=== PATIENT | female | born 1970 | race African-American/Black ===

== ENCOUNTER 2017-02-22 12:11 | Inpatient (IN) | payer OTHER, MEDICAID ==
[~2017-02-22] VITALS: Ht 172.7 cm; Wt 81.1 kg
[2017-02-22] VITALS (10 sets, daily range): BP systolic 86–180; BP diastolic 54–91; PULSE 51–125; RESP 18–23; O2SAT 91–100
[~2017-02-22 12:11] MED LIST: CLON0.1T PO; DOXE10CA PO; HYDR50TA76 PO; INSLIS SUBQ; INSU100I13 SUBQ; MULT-666 PO; MUPI15CR TOPICAL; NAPR500T PO; OMEG-122 PO
[2017-02-22 13:04] LABS: BASOPHILS % (AUTO) 0.1 % (0-3); EOSINOPHILS % (AUTO) 0.1 % (0-5); MONOCYTES % (AUTO) 8.1 % (4-12); Mean Corpuscular Hemoglobin 22.1 pg (27.0-35.0); Mean Corpuscular Volume 68.3 fL (81-100); NEUTROPHILS % (AUTO) 81.1 % (40-74); Platelet Count 151 bil/L (150-400)
[2017-02-22 13:27] LABS: Magnesium 1.3 mg/dL (1.6-2.6)
[2017-02-22 13:32] LABS: APPEARANCE,URINE HAZY (CLEAR,HAZY); COLOR,URINE YELLOW (YELLOW); OCCULT BLOOD,URINE SMALL (NEGATIVE); PH,URINE 6.5 (5.0-8.0)
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
[2017-02-22] MEDS ORDERED: Magnesium Sulf 2 Gm/50mL Water 2 GM in IV Premix 1 EACH IV ONE (13:45)
[2017-02-22] MEDS ORDERED: HYDROmorphone 0.5 mg/0.5 mL iSecure Syringe IVPUSH PRN (13:50)
[2017-02-22] MEDS ORDERED: Ondansetron 2 mg/mL 2 mL Inj IVPUSH ONE (13:50)
[2017-02-22] MEDS ORDERED: PEDS CEFTRIAXONE IV ONE (13:50)
[2017-02-22] MEDS ORDERED: DEXTROSE 5% IV ONE (13:50)
[2017-02-22] MEDS ORDERED: 0.9% Sodium Chloride 1,000 ML IV ONE ×4 (13:50→22:55)
[2017-02-22] MEDS ORDERED: cefTRIAXone 2,000 mg/D5W 50 mL IV Minibag Plus IV ONE ×2 (14:15)
--- NOTE | 2017-02-22 15:43 | DRSVH ---
PROCEDURE: CT KUB ([id number]) INDICATIONS: FLank pain, TECHNIQUE: Noncontrast 5 mm thick sections acquired from the diaphragms to the symphysis. 5 mm thick coronal an d sagittal reformats were then performed. For radiation dose reduction, the following was used: aut omated exposure control, adjustment of mA and/or kV according to patient size. COMPARISON: None. FINDINGS: Image quality: Excellent. Lung bases: There is moderate airspace opacity within the right lower lobe medially. Heart size is no rmal. Urinary system: Both kidneys are normal in size. Nonobstructing 1-2 mm diameter calculus within the superior pole right kidney. 2 mm diameter nonobstructing calculus in the interpolar left kidney. One- 2 mm diameter nonobstructing calculus within the left interpolar kidney. No hydronephrosis or perinep hric fat stranding. Both ureters appear non-dilated throughout their expected courses. Bilateral pe lvic calcifications are present, which are likely phleboliths, but small nonobstructing distal ureter al calculi cannot be excluded. Bladder wall thickness is normal; no calcified bladder stones. Other solid organs: Liver and spleen are normal in size. Gallbladder is surgically absent. Pancrea s is normal in contours. No adrenal nodules. Peritoneum and bowel: Unenhanced bowel loops demonstrate normal wall thickness and caliber. No free fluid or air. Normal appendix. Nodes and vessels: No retroperitoneal or mesenteric adenopathy by size criteria. Aorta and inferior vena cava are normal in caliber. Abdominal wall: No ventral hernias. Pelvis: No free pelvic fluid. No inguinal hernias or adenopathy. Bones: No suspicious bony lesions. No vertebral body compression fractures. IMPRESSION: 1. Right lower lobe pneumonia. Chest x-ray is recommended for initial assessment and for baseline for future followup examinations. 2. Nonobstructing bilateral nephrolithiasis. No evidence of urinary tract obstruction. Small nonobst ructing distal ureteral calculi cannot be excluded. 3. Normal appendix. Dictated by: Kierra Camacho M.D. on 02/22/2017 at 15:36 Approved by: Kierra Camacho M.D. on 02/22/2017 at 15:41
[2017-02-22] MEDS ORDERED: CLON0.1T PO (15:46)
[2017-02-22] MEDS ORDERED: Azithromycin Inj 500 MG in Dextrose 5% w/Vial Mate 250 ML IV ONE (15:55)
--- NOTE | 2017-02-22 16:46 | DRSVH ---
PROCEDURE: X-RAY CHEST ONE VIEW, PORTABLE ([id number]) INDICATIONS: hemoptysis TECHNIQUE: One view of the chest was acquired. COMPARISON: [facility], CR, CHEST 1VW (PORTABLE), 03/27/2014, 4:05. [facility], CR, CHEST 1VW (PORTABLE), 08/05/2013, 16:12. FINDINGS: Surgical changes and devices: None. Lungs and pleura: No pleural effusions or pneumothorax. Moderate air space opacity within the right lung base. Mediastinum: Mediastinal contours appear normal. Heart size is normal. Bones and chest wall: No suspicious bony lesions. Overlying soft tissues appear unremarkable. IMPRESSION: Right lung base pneumonia. Continued plain film surveillance is recommended to ensure res olution, and to exclude underlying or central malignancy. Dictated by: Kierra Camacho M.D. on 02/22/2017 at 16:43 Approved by: Kierra Camacho M.D. on 02/22/2017 at 16:44
[2017-02-22] MEDS ORDERED: Alum-Mag Hydrox-Simeth 30 mL Suspension PO PRN (17:20)
[2017-02-22] MEDS ORDERED: Ondansetron 2 mg/mL 2 mL Inj IVPUSH PRN (17:20)
[2017-02-22] MEDS ORDERED: Polyethylene Glycol (PEG) 17 Gm Powder PO PRN (17:20)
--- NOTE | 2017-02-22 17:39 | DRSVH ---
PROCEDURE: CT ANGIO CHEST PULMONARY EMBOLISM ([id number]) INDICATIONS: hemoptysis TECHNIQUE: After the administration of intravenous contrast, 2 mm thick sections acquired from the pulmonary api toan to the posterior costophrenic angles. 3-dimensional maximum intensity projection (MIP) coronal a nd sagittal reformats were then acquired through the thorax. For radiation dose reduction, the follo wing was used: automated exposure control, adjustment of mA and/or kV according to patient size. COMPARISON: None. FINDINGS: Image quality: Suboptimal due to poor heterogeneous opacification of the pulmonary vessels. Pulmonary arteries: There is some operative evaluation however no gross central or definite filling d efect is seen. The distal lobar and segmental pulmonary arteries are not well contrast opacified Lungs and pleura: Dense consolidation seen in the medial right lung base. Mediastinum: Heart size is normal, without pericardial effusion. No mediastinal or hilar adenopathy . Thoracic aorta is normal in caliber and enhancement. Esophagus is normal in caliber, without hiat al hernia. Bones and chest wall: No suspicious bony lesions. Ribs and thoracic spine appear intact throughout. Thyroid gland unremarkable. Prominent axillary lymph nodes bilaterally although technically nonspec ific. Abdomen: Visualized upper abdominal solid organs appear normal in the early arterial phase of enhanc ement. IMPRESSION: Suboptimal evaluation due to poor heterogeneous opacification of the pulmonary arteries. No gross or central filling defect seen to suggest pulmonary embolism. Dense consolidation within the right lower lobe most likely pneumonia although recommend continued fo llowup with short interval chest CT or chest radiographs to exclude underlying mass after treatment. Recommend clinical correlation Dictated by: Baljit Mendez M.D. on 02/22/2017 at 17:31 Approved by: Baljit Mendez M.D. on 02/22/2017 at 17:37
--- NOTE | 2017-02-22 17:40 | NUR ---
Admission Patient admitted into room 1006 from ED. SHIPPING AND RECEIVING present on admission. Oriented to floor and room, security called to lock valuables in closet. Reports chest pain, will notify MD of this. Denies other needs at this time. Call light within reach.
[2017-02-22] MEDS ORDERED: Magnesium Sulf 4 Gm/100 mL H2O 4 GM in IV Premix 1 EACH IV ONE (18:05)
[2017-02-22] MEDS: 0.9% Sodium Chloride 1,000 ML IV SCH (18:25)
[2017-02-22] MEDS ORDERED: Glucose 40% Oral Gel 15 Gm Tube PO PRN (18:30)
--- NOTE | 2017-02-22 18:40 | PCM.HPMED ---
Subjective Date of Service Feb 22, 2017 Primary Provider: Admitting Physician: Issa Roth MD [facility] Attending Physician: Issa Roth MD Chief Complaint: Chest pain History of Present Illness: Mirta Robert is a 47 year old woman with past medical history significant for hypertension, diabetes mellitus, past history of IV drug use and hepatitis C who presented to the [facility] emergency department today due to complaint of abdominal pain and chest pain that started earlier today. Patient is a very difficult historian and derailed the conversation quite frequently. A thorough history is quite difficult to obtain. Patient does mention that she has chest pain that is worse with inspiration as well as a cough and fevers. She also has noted diaphoresis and chills. She becomes quite frustrated at the interview process and does not want to participate in the conversation. From the ER report the patient states that she has felt poorly for over a month. The patient is homeless but has come down to [place] to stay in a boyfriends tent. She also states that she has had an accidental needle stick today but will not clarify beyond that. Dr. Ivory in the emergency department attempted to gather the history about this needle exposure but was unable to do so. Patient does state that she has history of hepatitis C but denies any past history of HIV. During my interview with her the patient began to have hemoptysis became very emotional about her illness. Of note, the patient gave emergency department multiple names to identify herself. In the emergency department her vital signs were notable for a pulse of 117 and a blood pressure of 180/81. Laboratory evaluation was notable for white count of 15.5 and a blood glucose of 334. One series of blood cultures was obtained due to difficulty with draws. CT of abdomen and pelvis to evaluate abdominal pain revealed right lower lobe pneumonia. Due to patient's hemoptysis a CTA was obtained to rule out pulmonary embolism and was negative for PE. She was treated with azithromycin and ceftriaxone, Tylenol, Toradol, Dilaudid, and 1 L of normal saline. The patient was admitted to the hospitalist service for further evaluation and treatment. Review of Systems: A comprehensive review of systems was difficult to obtain as the patient is a difficult historian. However the following was obtained: Gen.: The patient complained of fever, chills and diaphoresis. HEENT: Patient has no headache, patient has no diplopia, patient has no changes in vision. Patient has no problems with her ears, nose or throat. Patient has no known dental problems. Patient has no pharyngitis or history of thrush. Neck: Patient has no stiffness in the neck. Patient has no lymphadenopathy. Patient has no other problems with her neck. Pulmonary: Patient has no history of asthma or COPD. the patient has some shortness of breath and cough with hemoptysis. The patient has chest pain increased with deep inspiration and cough. Cardiovascular: Patient has chest pain which is worse with inspiration and/or cough. Patient has no history of heart murmur that she is aware of. Patient has no palpitations. Patient has no history of myocardial infarction. Patient has no history of coronary artery disease she is aware of. Gastrointestinal: Patient has no history of hepatitis A or B however, she has a history of Hepatitis C. Patient has no history of peptic ulcer disease. Patient has no history of gastroesophageal reflux disease. Patient has no history of nausea, vomiting, or diarrhea. Patient has no history of hematemesis , hematochezia, or melena. Patient has no history of colitis. Renal: Patient has no history of kidney disease. No history of kidney stones. Genitourinary: Patient has a history of dysuria, however no frequency, or incontinence. Patient has no previous history of genitourinary problems that she is aware of. Musculoskeletal: Patient has no history of muscular skeletal problems that she is aware of. Neurologic: Patient has no history of stroke, no history of seizure, no history of TIA that she is aware of. Psychiatric: Patient has no history of psychiatric problems that she is aware of. The remainder of the entire review of systems was reviewed with patient and is as mentioned above otherwise negative. Allergies Coded Allergies: meperidine HCl (Verified Allergy, Unknown, Hives, 01/26/16) morphine (Verified Allergy, Unknown, 02/22/17) strawberry (Verified Allergy, Unknown, 02/22/17) Home Medications Scheduled Clonidine (Clonidine) 0.1 Mg Tablet 0.1 MG PO HS Doxepin (Doxepin) 10 Mg Capsule 10 MG PO HS Scheduled PRN Hydroxyzine HCl (HydrOXYzine Hcl) 50 Mg Tablet 50 MG PO TID PRN PRN For Itching Naproxen (Naprosyn) 500 Mg Tablet 500 MG PO BID PRN PRN For Pain PMH Hypertension. Diabetes Mellitus, uncertain type Hepatitis C Surgical History Cholecystectomy. ORIF of right ankle fracture. Family History Multiple family members have type 1 diabetes mellitus. Social History Hx Alcohol Use: Yes (The patient states that she has "one drink per year".) Alcoholic Drinks Per Day: "None, but I got offered one yesterday." Hx Substance Use: Yes (The patient states she smokes Marijuana, last used 02/22. Patient also states that she smokes methamphetamine. She denies intravenous drug use. However, she states she was accidentally stuck with a needle today.) Hx Tobacco Use: No Smoking Status: Current Every Day Smoker Living Arrangement: with Friends/Roommate (The patient states that she is living in a tent with 3 other people. She did not denies that one of them is her boyfriend.) Additional Information The patient states that she is from [place] outside [facility]. She states she has been living in the [facility] for 22 years. She has 1 son who attended [place] high school and still lives in the area and works for [employer]. Patient states she smokes marijuana and smokes methamphetamine. She denies intravenous drug use. However, she states she was accidentally stuck with a needle today. The patient states she was but is now . Exam Vital Signs Vital Sign - Last Date Time Temp Pulse Resp B/P Pulse Ox O2 Delivery O2 Flow Rate FiO2 02/22/17 17:58 111 02/22/17 17:49 38.4 20 101/66 92 Room Air Exam General: No acute distress, well-developed, well-nourished, appropriately interactive HEENT: Normocephalic, atraumatic. External ears without defect. Pupils equal, round, and reactive to light and accommodation. Anicteric sclerae, moist conjunctivae, and no lid lag. Oropharynx free of erythema and cobble stoning with moist mucosa. Neck: Supple with full range of motion. No jugular venous distension. No lymphadenopathy or thyromegaly. Cardiovascular: Regular rhythm, tachycardic with a grade 2/6 systolic ejection murmur heard best at the left sternal border. There is no rub, or gallop appreciated Pulmonary: Crackles at right base. Normal respiratory effort with no use of accessory muscles. Abdomen: Bowel tones present. Soft, nontender, nondistended. No hepatosplenomegaly or masses appreciated. Extremities: No clubbing, cyanosis, edema, or lymphadenopathy appreciated. Skin: Normal temperature, turgor, and texture; no rash, ulcers, or subcutaneous nodules appreciated. Neurological: Cranial nerves grossly intact. Normal muscle strength, tone, and bulk. Reflexes, coordination, and sensory function within normal limits. No known gait impairment. Psychiatric: Labile affect, depressed mood. Alert and oriented to self and place. Lab and Diagnostics Result Diagram: 02/22/17 1250 02/22/17 1250 X-Rays, CTs and MRIs CT ANGIO CHEST PULMONARY EMBOLISM IMPRESSION: Suboptimal evaluation due to poor heterogeneous opacification of the pulmonary arteries. No gross or central filling defect seen to suggest pulmonary embolism. Dense consolidation within the right lower lobe most likely pneumonia although recommend continued followup with short interval chest CT or chest radiographs to exclude underlying mass after treatment. Recommend clinical correlatio Dictated by: Baljit Mendez M.D. on 02/22/2017 at 17:31 CT KUB IMPRESSION: 1. Right lower lobe pneumonia. Chest x-ray is recommended for initial assessment and for baseline for future followup examinations. 2. Nonobstructing bilateral nephrolithiasis. No evidence of urinary tract obstruction. Small nonobstructing distal ureteral calculi cannot be excluded. 3. Normal appendix. Dictated by: Kierra Camacho M.D. on 02/22/2017 at 15:36 X-RAY CHEST ONE VIEW, PORTABLE IMPRESSION: Right lung base pneumonia. Continued plain film surveillance is recommended to ensure resolution, and to exclude underlying or central malignancy. Dictated by: Kierra Camacho M.D. on 02/22/2017 at 16:43 Assessment & Plan Mirta Robert is a 47 year old woman with past medical history significant for hypertension, diabetes mellitus, past history of IV drug use and hepatitis C who presented to the [facility] emergency department today due to complaint of abdominal pain and chest pain that started earlier today. Right lower lobe community acquired pneumonia, present on admission, active -We will continue Azithromycin and Ceftriaxone -We will perform Respiratory viral PCR and MRSA screen. -Sputum culture and blood cultures pending. Sepsis, secondary to pneumonia, present on admission, active -Tachycardia, leukocytosis and hyperlactetemia -1 L NS bolus now and reassess. We will continue normal saline at 100 mL an hour -We will Trend lactate levels. -Cultures and antibiotics as described Hemoptysis, present on admission, active -Likely secondary to pneumonia, however will need to rule out TB given the patient's history -Quant Gold, ABF with NAAT and respiratory isolation has been ordered. -Infectious disease consultation in AM. We have spoken to Dr. Medellin and he agrees to consult in a.m. New murmur, concerning for endocarditisit, present on admission, active -Blood cultures obtained. Only one blood culture obtained prior to antibiotics being given, possibly due to patient being a difficult stick -ECHO pending. Chest pain, likely secondary to pneumonia, present on admission, active -As the patient is an unreliable historian, will check troponin and EKG Diabetes mellitus, uncertain type, present on admission, active -Will initiate patient on 10 units of Lantus nightly with medium dose correctional Lispro -A1C GERD and pending Hepatitis C, present on admission -Obtain viral load -Patient will need further workup and treatment as an outpatient. Needle exposure with history of IVDU, present on admission -HIV panel ordered by ED Severe asymptomatic hypertension, likely secondary to clonidine withdrawal, present on admission, active -Restart clonidine. CODE STATUS: FULL CODE Patient is admitted under inpatient status with expected length of stay greater than 2 midnights due to severity of presenting symptoms, risk of adverse event, and complexity of treatment plan. Pain Evaluation: Adequate Pain Control VTE Mechanical Devices: Intermittant Pneumatic CD Resuscitation Status: CPR: Attempt Resuscitation Attending Statement Patient was seen and examined. Case was discussed extensively with Dr. Angie Bowling. Chart reviewed and I agree with the above history and physical note. Filomena Bowling DO Feb 22, 2017 18:40 Issa Roth MD Feb 22, 2017 20:41
[2017-02-22] MEDS ORDERED: cloNIDine 0.1 mg Tablet PO SCH (21:00)
[2017-02-22] MEDS: Insulin GLARgine 100 Unit/mL Syringe SUBQ SCH (23:14)
[2017-02-23] VITALS (8 sets, daily range): BP systolic 97–122; BP diastolic 60–65; PULSE 90–107; RESP 10–25; O2SAT 90–100
--- NOTE | 2017-02-23 00:10 | NUR ---
transfer pt was transferred from [facility] room 1018 to room 2018 at 0000. she has been alert and oriented x4, able to move all extremities. she had an EKG done for chest pain that had no acute findings. pt states her chest pain feels like it comes from her lungs and is worse when she takes a deep breath. she was given Toradol for pain and was sleeping appearing comfortable upon reassessment. she had been given a total of 2L of NS bolus and BP was 93/58. pt has not voided, she denied any discomfort or need to void. pt was bladder scanned, 600cc was seen. pt states she will get up soon to void. this info was passed onto PCC nurse. her belongings were brought to her new room by security. Report given to Manjinder Guajardo Rn.
[2017-02-23] MEDS: Insulin LISPRO 300 Unit/3 mL Inj SUBQ SCH ×5 (00:32→22:28)
[2017-02-23] MEDS: 0.9% Sodium Chloride 1,000 ML IV SCH ×3 (02:50→16:54)
--- NOTE | 2017-02-23 03:08 | NUR ---
Transfer/Hemodynamics/pain Patient transferred from 1017 to 2017, patient awake but only responds to select questions, voided on BSC, BP stable since 2L fluids, SBP 90-110's, HR 100's ST and no ectopy noted, c/o upper chest pain, O2 3L NC and sats 95% at this time. Toradol ordered for pain, resting and calm at this time, no request for pain meds at this time, will continue to monitor, uneventful shift since patient was transferred. Addendum: 02/23/17 at 0314 by RADHA CRAMER RN Amended: Links added.
[2017-02-23 03:34] LABS: Platelet Count 118 bil/L (150-400)
[2017-02-23 03:40] LABS: BASOPHILS % (AUTO) 0 % (0-3); EOSINOPHILS % (AUTO) 0 % (0-5); MONOCYTES % (AUTO) 7 % (4-12); NEUTROPHILS % (AUTO) 64 % (40-74)
[2017-02-23 03:41] LABS: Magnesium 2.6 mg/dL (1.6-2.6)
--- NOTE | 2017-02-23 08:47 | DRSVH ---
PROCEDURE: US RENAL SONOGRAM INDICATIONS: Possible hydronephrosis TECHNIQUE: Real-time scanning was performed of the kidneys and bladder, with image documentation. COMPARISON: None. FINDINGS: Kidneys: Left kidney not well-seen, partially obscured by overlying bowel gas, otherwise kidneys are normal in size. Right kidney measures 11.9 cm long; left kidney measures 11.3 cm long. Right renal cortical thickness is 1.4 cm; left renal cortical thickness is 1.3 cm. Renal cortical echotexture is normal. No hydronephrosis or nephrolithiasis. No suspicious solid mass lesions. Bladder: Bladder is grossly unremarkable however the patient is unable to void during the examinatio n. Both ureteral jets are visualized. Miscellaneous: No free pelvic fluid. IMPRESSION: No hydronephrosis. Suboptimal visualization of the left kidney. Dictated by: Baljit Mendez M.D. on 02/23/2017 at 8:43 Approved by: Baljit Mendez M.D. on 02/23/2017 at 8:45
[2017-02-23] MEDS: cefTRIAXone Inj 2,000 MG in Dextrose 5% Minibag Plus 50 ML IV SCH (09:31)
--- NOTE | 2017-02-23 10:33 | CONS ---
[address] [address] CONSULTATION REPORT PATIENT: MALICK BARR : 1970 MR#: [id number] ADMIT: 02/22/2017 JOB ID: [id number] DATE OF SERVICE: 02/23/2017 INFECTIOUS DISEASE CONSULTATION: REASON FOR CONSULTATION: Rule out active tuberculosis. I thank Dr. Roth for this timely consult. HISTORY OF PRESENT ILLNESS: The patient is a 47-year-old homeless woman who hails from [place], [place]. She is currently living in the [facility]. She has underlying past medical history of poly substance abuse, though over IV drug use was in the distant past, hepatitis C which has not been treated, hypertension, diabetes x20 years which appears to be type 2 diabetes and a history of prior right-sided pneumonia. She was admitted to [facility] yesterday with a complaint of acute on chronic illness. The patient tells us for six weeks or so she has had fatigue, malaise, cramping in the hands, vague abdominal pains and just a sense of being unwell. This was not a focal history, however, and there was really not much in the way of pulmonary complaint. Over the past two days prior to yesterday's admission though, she has felt much worse with the onset of a headache, some possible vision changes, significant cough without sputum production, and just yesterday, there was a bit of hemoptysis, chest pain, which was bilateral and some nausea. This is accompanied by fevers, chills and sweats, all of which were acute just over the past couple days. She believes she has had some longer term weight loss, however, over the past several weeks. During the recent past, she has been homeless but now has just secured some form of housing which is apparently more stable and indoors. Recently she and several friends have been living in a tent. The patient reports she has been homeless for years in various locations around the area. She denies any known exposure to tuberculosis and there is no one in her family history with tuberculosis. PAST MEDICAL HISTORY: 1. Polysubstance abuse most recently just with inhaled marijuana though in the past with injection drugs including meth and cocaine. 2. Hepatitis C, never treated. 3. Hypertension. 4. Diabetes mellitus x20 years which started out without need for insulin therapy so presumably is type 2 diabetes. 5. History of right lower lobe pneumonia at this hospital three or four years ago. SOCIAL HISTORY: The patient is homeless and unemployed. She has one son who lives here in [facility] and who has a job locally. She is a long-time cigarette smoker. Does not consume alcohol. She does use marijuana in the past. Used intravenous drugs but that was reportedly decades ago. FAMILY HISTORY: Negative for TB in first or second-degree relatives. No known TB exposures. REVIEW OF SYSTEMS: Was done. The patient states she has a headache which has lasted for the past couple days. She denies any seizures or confusion. However, she has minimal change in vision over the last couple days. She states she has a bit of a stiff neck and she was able to demonstrate that it is a bit stiff. That also has taken place over just the last couple days. No intraoral complaints. She has had cough for a couple days with one episode of hemoptysis apparently. Some pleuritic chest pain is noted. She has had some nausea but no vomiting. No significant diarrhea. She notes it has been difficult to pass urine lately and she has had some sensation after she urinates that she needs to go again immediately consistent with frequency. No swelling of the joints. She notes she has some numbness in her feet but it is not severe. Remainder of the review of systems negative. PHYSICAL EXAMINATION: Reveals a woman who was febrile during yesterday afternoon when she came in, 38.8 was her T-max. She is currently 37.8. Her pulse 107, respiratory rate 21, blood pressure 97/60. She is saturating well on 2 L. Her mental status seems clear. Her mood seems depressed and her affect somewhat flat, but she is able to answer questions, give a lucid history. Head without trauma. Sinuses without apparent abnormality. She has mild conjunctivitis bilaterally. Nose normal. Oral cavity: Coated tongue but no thrush or pharyngitis. Neck is somewhat stiff, and the patient cannot fully flex her neck. Reports that is mildly painful. Neck itself is without adenopathy or JVD. Lungs with crackles at the right base. Cardiac tones regular rate and rhythm. Abdomen: Left greater than right upper quadrant tenderness. There is also some left lower quadrant tenderness which is appreciated, but no rebound or guarding. She has no suprapubic tenderness. She did not have a Camacho catheter. He has not have inguinal adenopathy. Does not have evidence of synovitis. Does not have evidence of cellulitis. Neurologically she is intact. She has both proprioception and light touch which is intact in her feet despite her history of neuropathy and long-term diabetes. Remainder of the physical is unremarkable. LABORATORIES: Include white count was 15, now 13,000, but profound left shift, 21% bands. Platelet count 118. Creatinine 0.63. Lactic acid slightly up at 2.1. Bilirubin 1.5. AST, ALT, alk phos normal. Albumin 2.6. Procalcitonin was 0 when she came in, this morning 1.71. Urine with 0-5 white cells. Hep C antibody is strongly positive. Hep C viral load is pending. Hepatitis B surface antibody is positive. Hepatitis B surface antigen is negative. HIV is negative. QuantiFERON Gold is pending. Micro studies include negative blood cultures. MRSA screen is pending. Respiratory viral PCR pending. IMAGING: Was carefully reviewed and we looked at the x-rays ourselves. CT angiogram is the best of the studies. It shows no PE but a dense right lower lobe consolidation consistent with bacterial pneumonia. IMPRESSION: Though this patient did have a bit of hemoptysis in association with this 2-day history of fevers, chills, and cough, I think most likely she has a typical bacterial pneumonia and most likely pneumococcal pneumonia. The patient has impressive physical findings with respect to right base. Her CT and routine chest x-ray showed a dense infiltrate there. She has fevers, chills and sweats with a big left shift in her white count and a procalcitonin which jumped from basically negative to almost 2 overnight. All of these things would be most compatible with a typical bacterial pneumonia such as pneumococcal pneumonia though the possibility of aspiration pneumonia, H flu, Moraxella or even a Klebsiella pneumonia exists. Her neck stiffness is of some concern but she has no neurologic symptoms or findings really other than a mild headache and I am not certain that we should go on or a search already for Nocardia or more esoteric organisms. Cryptococcus comes to mind is an organism that could cause meningeal issues as well as infiltrate and I think if we do not get an immediate answer with our blood cultures and urine antigens, we should reasonably pursue a cryptococcal antigen. Her abdominal findings are difficult to explain. She has some left upper quadrant pain without palpable spleen and some left lower quadrant pain as well. I doubt that she has an abdominal source of infection but we will explore that if we do not get an answer as to her possible cause of her pneumonia. RECOMMENDATIONS: 1. I would continue with azithro and ceftriaxone. 2. Urine antigen should be ordered for pneumococcus and Legionella. 3. We await the QuantiFERON Gold and the sputum AFBs that have been ordered, though I think TB is very unlikely given the acuteness of her presentation and the bandemia we see. 4. We await the hepatitis C quantitation. 5. Will check a hepatitis B total core antibody to see if she has been vaccinated for hep B or already had the disease as this may have implications going forward if she has previously had hepatitis B. 6. Will continue to closely follow this complex patient with you.
[2017-02-23] MEDS ORDERED: 0.9% Sodium Chloride 1,000 ML IV ONE (11:40)
--- NOTE | 2017-02-23 11:45 | PCM.PNMED ---
Subjective Date of Service Feb 23, 2017 Subjective pt had recurrent febrile episode, low to moderate degree, mildly hypotensive, tachycardic, pt c/o multitude of sx, THAPA, mild suprapubic pain, mild SOB, cough with yellow/ greenish thick sputum, also noticed blood streaked Exam Vital Signs Vital Sign - Last Date Time Temp Pulse Resp B/P Pulse Ox O2 Delivery O2 Flow Rate FiO2 02/23/17 06:22 107 02/23/17 03:43 37.8 21 97/60 100 Nasal Cannula 2.00 Intake and Output 02/22/17 02/22/17 02/23/17 Cumulative From/Thru 15:00 23:00 07:00 02/22/17 12:17 - 02/23/17 06:50 Intake Total 999 ml 0 ml 3121 ml 4120 ml Output Total 0 ml 800 ml 800 ml Balance 999 ml 0 ml 2321 ml 3320 ml Intake Oral 0 ml 400 ml 400 ml IV Total 999 ml 2721 ml 3720 ml Output Urine Total 0 ml 800 ml 800 ml # Voids 1 1 Exam pt looked distressed and weak, intermittent had productive cough, no JVD, MMM, no LAD RRR, nl s1, s2 no mrg decreased BS up to right mid lung field S,ND,NT,normoactive BS+ warm, no edema, pulses 2/2 IVs and Medications Medications Reviewed: Medications were reviewed in detail Lab and Diagnostics Result Diagram: 02/23/17 0238 02/23/17 0238 X-Rays, CTs and MRIs CT ANGIO CHEST PULMONARY EMBOLISM IMPRESSION: Suboptimal evaluation due to poor heterogeneous opacification of the pulmonary arteries. No gross or central filling defect seen to suggest pulmonary embolism. Dense consolidation within the right lower lobe most likely pneumonia although recommend continued followup with short interval chest CT or chest radiographs to exclude underlying mass after treatment. Recommend clinical correlatio Dictated by: Baljit Mendez M.D. on 02/22/2017 at 17:31 CT KUB IMPRESSION: 1. Right lower lobe pneumonia. Chest x-ray is recommended for initial assessment and for baseline for future followup examinations. 2. Nonobstructing bilateral nephrolithiasis. No evidence of urinary tract obstruction. Small nonobstructing distal ureteral calculi cannot be excluded. 3. Normal appendix. Dictated by: Kierra Camacho M.D. on 02/22/2017 at 15:36 X-RAY CHEST ONE VIEW, PORTABLE IMPRESSION: Right lung base pneumonia. Continued plain film surveillance is recommended to ensure resolution, and to exclude underlying or central malignancy. Dictated by: Kierra Camacho M.D. on 02/22/2017 at 16:43 Assessment & Plan Mirta Robert is a 47 year old woman with past medical history significant for hypertension, diabetes mellitus, past history of IV drug use and hepatitis C who presented to the [facility] emergency department today due to complaint of abdominal pain and chest pain that started earlier today. acute, active, sepsis, SIRS 4/4+wbc, fever, HR, RR, source: possible bacterial PNA, UTI. -pt received about 2liters, still remaining hypotensive, tachycardic, will bolus 1liter again, continue NS 100cc/hr -wbc trending down but showed significant bandemia, PCT went up -continue to monitor fever curve, BCX if febrile, trend wbc, PCT daily Right lower lobe community acquired pneumonia, present on admission, active, CTPE showed no PE but dense consolidation in RLL with airbrochgram, suggestive of typical bacterial process. Pt was started on Azithromycin and Ceftriaxone in ED -continue Azithromycin and Ceftriaxone, appreciate ID input, -awaits infectious w/u: so far ngtd-BCX, MRSA swab, BCX, resp PCR blood tinged sputum, present on admission, Given patient's homelessness, cannot rule out TB, although more suggestive of purulent sputum due to bacterial process -awaits Quant Gold, ABF with NAAT and respiratory isolation has been ordered. New murmur, concerning for endocarditisit, present on admission, active -ECHO pending. Diabetes mellitus, uncertain type, present on admission, a1c12.8 -glc 240s this AM, increase 10 to 20 units of Lantus nightly with high dose correctional Lispro chronic, stable, resolved Chest pain, likely secondary to pneumonia, present on admission, serial troponin , EKG didn't show signs of ischemia. Hepatitis C, present on admission, Obtain viral load, Patient will need further workup and treatment as an outpatient. Needle exposure with history of IVDU, present on admission, HIV negative. Severe asymptomatic hypertension, likely secondary to clonidine withdrawal, present on admission, active, Restart clonidine. CODE STATUS: FULL CODE dispo: likely 2-3more days, appreciate SW eval for optimal dispo VTE Mechanical Devices: Intermittant Pneumatic CD Resuscitation Status: CPR: Attempt Resuscitation Time spent 35min Farida Spencer MD Feb 23, 2017 11:45
--- NOTE | 2017-02-23 14:58 | DRSVH ---
[facility] [address] [place] [address] Echocardiogram Report Name: MALICK BARR LStudy Date: 02/23/2017 Height: 68 in Hospital Exam Location: [facility] Weight: 174 lb Gender: Female BSA: 1.9 m2 : 1970 Age: 47 yrs BP: 97/6 0 mmHg Reason For Study: Endocarditis Ordering Physician: Ayan Armando Performed By: Diony Sow Referring Physician: BELLE HIDALGO Interpretation Summary There is mild-moderate concentric left ventricular hypertrophy. The ejection fraction is estimated to be 65-70%. The aortic valve is slightly calcified. There is trace aortic regurgitation. There is mild tricuspid regurgitation. The right ventricular systolic pressure is estimated at 31 mmHg assuming a right atrial pressure of 3 mm Hg. No evidence of a vegetation. Consider SHANTE if clincally indicated. Procedure: A two-dimensional transthoracic echocardiogram with color flow and Doppler was performed. The study quality was technically good. There is no prior echocardiogram noted for this patient. The patient was in sinus tachycardia with heart rates between 92-103 bpm during the exam. Left Ventricle: The left ventricle is normal in size. There is mild- moderate concentric left ventricular hypertrophy. The ejection fraction is estimated to be 65-70%. There are no focal wall motion abnormalities. Assessment of diastolic parameters indicates normal left ventricular diastolic function and normal filling pressures. Right Ventricle: The right ventricle is normal in size, thickness and function. Atria: The left atrial size is normal. Right atrial size is normal. The interatrial septum is intact with no evidence for an atrial septal defect. Mitral Valve: The mitral valve leaflets are slightly calcified. There is trace mitral regurgitation. Aortic Valve: The aortic valve is trileaflet. The aortic valve opens well. The aortic valve is slightly calcified. There is trace aortic regurgitation. Tricuspid Valve: The tricuspid valve is normal. There is mild tricuspid regurgitation. The right ventricular systolic pressure is estimated at 31 mmHg assuming a right atrial pressure of 3 mm Hg. Pulmonic Valve: The pulmonic valve leaflets are thin and pliable; valve motion is normal. There is a trace or physiologic amount of pulmonic regurgitation. Great Vessels: The aortic root is normal size. The dimensions of the ascending aorta are normal. The pulmonary artery is normal size. The IVC is of normal diameter and collapses greater than 50% with a sniff. This suggests a low right atrial pressure of 3 mm Hg. Pericardium/ Pleura There is no pericardial effusion. There is no pleural effusion. MMode/2D Measurements & Calculations LVIDd: 4.0 cm RA long axis LVOT diam: 2.2 cm LVIDs: 2.6 cm LA A2 area: 14.6 cm Ao root diam FS: 35.4 % LA A4 area: 23.2 cm RA area IVSd: 1.1 cm LA length (vol) asc Aorta Diam LVPWd: 1.6 cm : 13.4 cm LA vol: 48.3 ml RA vol Ao Arch Diam (Prox LA vol index : 37.1 ml Trans): 2.9 cm RA : 25.1 ml/m2 : 19.3 mm2 LV michel. diameter/BSA LV sys. diameter/BSA TAPSE: 1.5 cm (cm/m^2): 2.1 (cm/m^2): 1.3 Doppler Measurements & Calculations Ao V2 max MV E max navarro MV E/A: 1.1 TR max navarro : 192.1 cm/sec : 85.8 cm/sec Med Peak E' Navarro : 263.4 cm/sec Ao max P.8 mmHg MV A max navarro TR max PG Ao mean P.3 mmHg : 75.9 cm/sec E/E' med: 11.8 : 27.8 mmHg LVOT Max Navarro Lat Peak E' Navarro PA V2 max : 123.0 cm/sec : 103.4 cm/sec FABIANO(I,D): 2.9 cm E/E' lat: 10.4 PA mean PG sev ratio: 0.75 E/e' average : 2.5 mmHg MV dec time: 0.20 sec Ao V2 mean LV V1 max PG PA V2 mean : 138.3 cm/sec : 76.3 cm/sec Ao V2 VTI: 32.1 cmLV V1 VTI: 24.2 cmPA pr(Accel) FABIANO(V,D): 2.4 cm2 : 38.5 mmHg FABIANO indexed to BSA (cm^2/m^2): 1.5 Electronically signed by: Andrey Fischer on Reading Physician:02/23/2017 02:57 PM
[2017-02-23] MEDS ORDERED: Azithromycin Inj 500 MG in Dextrose 5% w/Vial Mate 250 ML IV SCH (16:00)
--- NOTE | 2017-02-23 16:13 | NUR ---
Social Work: Screen/Multidisciplinary Round D: Per EMR review, pt is a 47 year old female admitted for pylonephritis, substance abuse. Pt is [employer] Blind Disabled. PCP is through the [facility] in [place]. NOK Is Guillermo Demarco, S/o. Advanced directives not complete-information provided to pt by bedside RN. Readmit score is high, 4/8. Pt is currently homeless living in a tent with her s/o, in [place]. Pt has a history of IV substance use and will require CD assessment. CD order placed. TEACHER INDUSTRIAL ARTS acnkowledges order but will not be able to see the pt today due to high census. A: Pt who requires CD assessment and discharge planning assessment P: [employer] to follow up with patient and bedside to complete D/c planning and CD assessment. IVETTE Turjillo
--- NOTE | 2017-02-23 18:36 | NUR ---
Mentation/Hemodynamics/Resp/Activity/pain Patient somnolent, but a/o x3. Cooperative. BP stable, but did give one L NS bolus as ordered. Last BP 126/60. Tele SR-ST, up to low 100s with activity. Good UOP, but urine is dark cherry and odorous. UA sent to lab. 100% on RA, but patient get very dyspneic with activity. Up to BSC to void with SBA. C/O chest wall pain with activity. Gave Tordol for this, but then patient c/o THAPA. Also temp up to 102 around 1700. made aware. Blood Cultures drawn and patient was given 975 mg Tylenol. Continue to monitor.
[2017-02-23] MEDS ORDERED: Acetaminophen IV 1,000 MG in IV Premix 1 EACH IV PRN (21:50)
[2017-02-23] MEDS: Insulin GLARgine 100 Unit/mL Syringe SUBQ SCH (22:27)
[2017-02-24] VITALS (8 sets, daily range): BP systolic 112–167; BP diastolic 62–95; PULSE 62–95; RESP 16–19; O2SAT 93–100
[2017-02-24 04:27] LABS: BASOPHILS % (AUTO) 0.2 % (0-3); MONOCYTES % (AUTO) 7.9 % (4-12); Mean Corpuscular Hemoglobin 21.9 pg (27.0-35.0); Mean Corpuscular Volume 67.2 fL (81-100); NEUTROPHILS % (AUTO) 65.2 % (40-74); Platelet Count 132 bil/L (150-400)
[2017-02-24 04:45] LABS: Magnesium 2.3 mg/dL (1.6-2.6); Phosphorus 2.9 mg/dL (2.5-4.9)
--- NOTE | 2017-02-24 06:19 | NUR ---
Pain / Tele Pt minimally cooperative with care. Pt c/o chest pain 05/23, stat EKG done, shows NSR with no ectopy. Pt offered Toradol IV but, she refused med, stating that it makes her sick. notified and new order for IV Tylenol and was administered w/o relief of pain. Pt continued through the night c/o chest pain 05/23, MD notified again and new order for Tessalon Pearls, Pt offered again Toradol along with Tessalon Pearls and Pt refused both meds. Last check Pt wouldnt even respond to my question regarding pain. Tele has been SR with occ PVCs per Link Fabric Machine Operator HR 60-90s.
[2017-02-24] MEDS: Insulin LISPRO 300 Unit/3 mL Inj SUBQ SCH ×4 (08:00→22:53)
--- NOTE | 2017-02-24 08:39 | PROG NOTE ---
[address] [address] PROGRESS NOTE PATIENT: MALICK BARR : 1970 MR#: [id number] ADMIT: 02/22/2017 JOB ID: [id number] DATE: 02/24/2017 REASON FOR FOLLOW UP: Pneumococcal pneumonia. INTERVAL HISTORY: Overnight, the patient reports that she is not feeling any better. She continues to experience fevers and chills, with severe headache, cough with hemoptysis and production of her brown bloody sputum and some left pleuritic chest pain. No nausea or vomiting. PHYSICAL EXAMINATION: Reveals an uncomfortable woman lying in her PCC bed. She is afebrile now at 37.4, temperature, but she was 38.9 during the night. Pulse 80, respiratory rate 18, blood pressure 119/73, she is saturating 100% on room air however. Her mental status is clear. Eyes without conjunctivitis. Her lips without herpetic lesions. Lungs with crackles at the right base. Cardiac tones regular rate and rhythm without murmur. Abdomen benign. LABORATORY DATA: Include A white count which actually bumped up today to 17,000, but the bands have resolved on recall yesterday, she had over 20% band forms. Creatinine 0.54. LFT normal. Procalcitonin is 2 today which is up slightly from 1.71 yesterday. Urinalysis had no white cells. HIV was negative. Hep C positive. Hep B core is positive. Hep B surface antigen negative and hepatitis B surface antibody positive which indicates that she has previously had hepatitis B, but has controlled the infection in the normal fashion. Urine pneumococcal antigen positive, blood cultures negative, MRSA screen negative, urine culture positive for a non-fermenting gram negative jessa, but note this was occurring in the setting of no pyuria. IMAGING: Included the CT scan of the chest, that I had looked at and reviewed yesterday. It shows dense consolidation of the right lower lobe. IMPRESSION: This patient has relatively classic pneumococcal pneumonia. She has rust-colored sputum which is typical of the pneumococcus in association with high fevers, pleuritic chest pain and leukocytosis with left shift. Typically, patients with pneumococcal pneumonia will dramatically improve after between two and four days of antibiotics and usually can be discharged once they have been afebrile a day or two. RECOMMENDATIONS: 1. Continue with azithromycin to finish three days total. I have put in a stop date for tomorrow, February 25, for the azithromycin. 2. I would continue the patient on ceftriaxone until she has been afebrile for 24-48 hours and is looking better. At that point, she can be transitioned to amoxicillin 1 g p.o. t.i.d. to finish a seven day total course. 3. We still await a few other studies including QuantiFERON Gold, but I think the chances of tuberculosis are almost nil and we can certainly stop isolation. 4. Note that I will be out of town the next three days returning on February 28. Please do not hesitate to call me if there are any questions or issues.
[2017-02-24] MEDS: cefTRIAXone Inj 2,000 MG in Dextrose 5% Minibag Plus 50 ML IV SCH (09:00)
[2017-02-24] MEDS: 0.9% Sodium Chloride 1,000 ML IV SCH (09:04)
--- NOTE | 2017-02-24 14:16 | PCM.PNMED ---
Subjective Date of Service Feb 24, 2017 Subjective Overnight, patient complains of chest pain 10/10, stat EKG done, shows NSR with no ectopy. Patient refused Toradol and Tylenol. Tele has been SR with occasional PVCs per Sort Line HR 60-90s. Today, patient complains that no one has done anything for her. She reports severe headache from the Toradol, chest pain 9/10 that worsens with deep breathing, crampy/diffuse abdominal pain, and SOB. She admits to intermittent cough and fever, but denies any nausea, vomiting, dysuria, or chills. She states that she was told not to take Tylenol due to Hepatitis C. Exam Vital Signs Vital Sign - Last Date Time Temp Pulse Resp B/P Pulse Ox O2 Delivery O2 Flow Rate FiO2 02/24/17 08:57 37.4 90 19 150/82 100 Room Air 02/23/17 15:40 2.00 Intake and Output 02/23/17 02/23/17 02/24/17 Cumulative From/Thru 15:00 23:00 07:00 02/22/17 12:17 - 02/24/17 06:09 Intake Total 3090 ml 1043 ml 8253 ml Output Total 650 ml 550 ml 2000 ml Balance 2440 ml 493 ml 6253 ml Intake Oral 1496 ml 120 ml 2016 ml IV Total 1594 ml 923 ml 6237 ml Output Urine Total 650 ml 550 ml 2000 ml # Voids 1 2 # Bowel Movements 0 0 Exam General: No acute distress, well-developed, well-nourished, minimally cooperative. HEENT: Normocephalic, atraumatic. Pupils equal, round, and reactive to light and accommodation. Anicteric sclerae, moist conjunctivae, and no lid lag. Moist mucosa. Neck: Supple with full range of motion. No jugular venous distension. No lymphadenopathy or thyromegaly. Cardiovascular: Regular rate and rhythm. There is no rub, murmurs, or gallop appreciated Pulmonary: Crackles at right base. Normal respiratory effort with no use of accessory muscles. Abdomen: Bowel tones present. Soft, nondistended. Moderate tenderness to palpation in epigastric, LUQ, and LLQ. No hepatosplenomegaly or masses appreciated. Extremities: No clubbing, cyanosis, edema, or lymphadenopathy appreciated. Skin: Normal temperature, turgor, and texture; no rash, ulcers, or subcutaneous nodules appreciated. Neurological: Cranial nerves grossly intact. Psychiatric: Labile affect, depressed mood. Alert and oriented to self and place. IVs and Medications Medications Reviewed: Medications were reviewed in detail Lab and Diagnostics Result Diagram: 02/24/17 0350 02/24/17 0350 X-Rays, CTs and MRIs CT ANGIO CHEST PULMONARY EMBOLISM IMPRESSION: Suboptimal evaluation due to poor heterogeneous opacification of the pulmonary arteries. No gross or central filling defect seen to suggest pulmonary embolism. Dense consolidation within the right lower lobe most likely pneumonia although recommend continued followup with short interval chest CT or chest radiographs to exclude underlying mass after treatment. Recommend clinical correlatio Dictated by: Baljit Mendez M.D. on 02/22/2017 at 17:31 CT KUB IMPRESSION: 1. Right lower lobe pneumonia. Chest x-ray is recommended for initial assessment and for baseline for future followup examinations. 2. Nonobstructing bilateral nephrolithiasis. No evidence of urinary tract obstruction. Small nonobstructing distal ureteral calculi cannot be excluded. 3. Normal appendix. Dictated by: Kierra Camacho M.D. on 02/22/2017 at 15:36 X-RAY CHEST ONE VIEW, PORTABLE IMPRESSION: Right lung base pneumonia. Continued plain film surveillance is recommended to ensure resolution, and to exclude underlying or central malignancy. Dictated by: Kierra Camacho M.D. on 02/22/2017 at 16:43 Cardiac Echo Impressions Interpretation Summary There is mild-moderate concentric left ventricular hypertrophy. The ejection fraction is estimated to be 65-70%. The aortic valve is slightly calcified. There is trace aortic regurgitation. There is mild tricuspid regurgitation. The right ventricular systolic pressure is estimated at 31 mmHg assuming a right atrial pressure of 3 mm Hg. No evidence of a vegetation. Consider SHANTE if clincally indicated. Assessment & Plan Mirta Robert is a 47 year old woman with past medical history significant for hypertension, diabetes mellitus, past history of IV drug use and hepatitis C who presented to the [facility] emergency department today due to complaint of abdominal pain and chest pain that started earlier today. Sepsis, secondary to pneumonia, present on admission, improving. -Tachycardia, RR, leukocytosis and elevated lactate on admission. Sources are Pneumonia and UTI. Treatment as below. -Procalcitonin 2.02. Continue to trend. -WBC bumps up today at 17.3 but bandemia resolved. Lactic acid normalized as well. -D/C IVF. -We will Trend lactate levels. -Cultures and antibiotics as below. Strep pneumoniae right lower lobe community acquired pneumonia, present on admission, active - Strep antigen positive. - Appreciate Dr. Medellin's input. We will continue Azithromycin until tomorrow ( 3 days total) and Ceftriaxone until she is afebrile for 48 hours. Will consider transition to Amoxicillin PO TID for a total of 7 days tomorrow. Day 2 on antibiotics. - Negative Respiratory viral PCR and MRSA screen. - Sputum culture and blood cultures pending. - QuantiFeron gold pending, but possibility of TB is low per ID. E. coli UTI, acute, POA, active. - Urine culture revealed E. coli that is sensitive to Ceftriaxone. - continue Ceftriaxone as above. Hemoptysis, present on admission, active -Likely secondary to pneumonia. However, given the patient's homeless status, cannot rule out TB, although more suggestive of purulent sputum due to bacterial process. -awaits Quant Gold, ABF with NAAT. -Follow up with Infectious disease New murmur, concerning for endocarditis, present on admission, unlikely. -There was concern of endocarditis on admission due to new murmur appreciated. However, I did not appreciate any murmur today. -Blood cultures pending. -Echo normal. No evidence of vegetations or valvular abnormalities. -Follow clinically. Diabetes mellitus, uncertain type, present on admission, a1c12.8 -BG 187 this AM, increase 10 to 15 units of Lantus nightly with high dose correctional Lispro Chest pain, likely secondary to pneumonia, present on admission, active -Trop negative x 2. EKG normal. -Pain control with Tramadol and Tylenol. chronic, stable, resolved Hepatitis C, present on admission -Obtain viral load -Patient will need further workup and treatment as an outpatient. Needle exposure with history of IVDU, present on admission -HIV panel ordered by ED Severe asymptomatic hypertension, likely secondary to clonidine withdrawal, present on admission, active -Restart clonidine. CODE STATUS: FULL CODE dispo: likely 2-3more days, appreciate MARTIN lawrence for optimal dispo Pain Evaluation: Pain not Controlled GI Prophylaxis: Proton Pump Inhibitor VTE Mechanical Devices: Intermittant Pneumatic CD Resuscitation Status: CPR: Attempt Resuscitation Kalee Rothman DO Feb 24, 2017 14:16 correctional Lispro chronic, stable, resolved Chest pain, likely secondary to pneumonia, present on admission, serial troponin , EKG didn't show signs of ischemia. Hepatitis C, present on admission, Obtain viral load, Patient will need further workup and treatment as an outpatient. Needle exposure with history of IVDU, present on admission, HIV negative. Severe asymptomatic hypertension, likely secondary to clonidine withdrawal, present on admission, active, Restart clonidine. CODE STATUS: FULL CODE dispo: likely 2-3more days, appreciate SW eval for optimal dispo Chest pain, likely secondary to pneumonia, present on admission, active -As the patient is an unreliable historian, will check troponin and EKG Diabetes mellitus, uncertain type, present on admission, active -Will initiate patient on 10 units of Lantus nightly with medium dose correctional Lispro -A1C GERD and pending Hepatitis C, present on admission -Obtain viral load -Patient will need further workup and treatment as an outpatient. Needle exposure with history of IVDU, present on admission -HIV panel ordered by ED Severe asymptomatic hypertension, likely secondary to clonidine withdrawal, present on admission, active -Restart clonidine. Pain Evaluation: Pain not Controlled GI Prophylaxis: Proton Pump Inhibitor VTE Mechanical Devices: Intermittant Pneumatic CD Resuscitation Status: CPR: Attempt Resuscitation Kalee Rothman DO Feb 24, 2017 14:16
[2017-02-24] MEDS: Pantoprazole 40 mg ER24 Tablet PO SCH (15:58)
--- NOTE | 2017-02-24 16:14 | NUR ---
Transfer to 3005 Pt transferred to 3005 @ 1615 via wheelchair. All belongings gathered, security called to unlock closet so belongings can be hand carried to room. Pain 10/10 before transfer, tramadol 100mg admin prior to transfer. Mentation at baseline, SL x 1, RA. Tired, flat affect, slept most of shift, kitchen called to have tray sent to 3005. Azithromycin IV & insulin transported w/ chart. Report given to Tona Christian RN. Security arrived @ 1618 to unlock closet & deliver belongings.
--- NOTE | 2017-02-24 16:52 | NUR ---
Multidisciplinary Rounds Pt discussed in am rounds. Pt is not medically stable for discharge at this time. Pt being transferred to [facility]. HEAD UP OPERATOR HELPER has not yet been able to meet with the patient to complete discharge planning or complete CD assessment due to high census. HEAD UP OPERATOR HELPER to see the patient prior to d/c to assess for discharge needs and provide resources. IVETTE Trujillo
--- NOTE | 2017-02-24 17:00 | NUR ---
Assumed Care: Patient arrived to [facility] at approx 1615 via wheelchair. Ambulated from wheelchair to bed. Patient states THAPA is "12" on pain scale and temp of 38.0C. Refused Tylenol because of Hep C status. Offered cold washcloth. Patient declined offer. Discussed Tylenol and Hep C with pharmacist, liver enzymes WNL and patient has been receiving Tylenol. Pharmacist states that for short-term Tylenol is ok to give since liver enzymes normal. Discussed with patient and she continues to refuse Tylenol because she states that " it makes my temperature go up". At the same time, she states that she would like something for her THAPA. Tramadol administered prior to transfer from [facility]. Patient states she doesn't want "any of that Tramadol or Toradol shit because it don't do no good, it makes my pain worse. I want Percocet". Asked patient if she had discussed with MD and RN from [facility]. She states that she was ignored. Reminded patient that Percocet also contains Tylenol. Patient is also refusing BG check and full physical assessment. Let patient know that I will call MD to discuss pain medication. At that point, patient will not speak to me. paged. Addendum: 02/24/17 at 1722 by ADOLFO OCAMPO RN Discussed pain and temperature issue w/. states he would like to avoid all narcotic medications. Received one time order for Fioricet.
[2017-02-24] MEDS ORDERED: Butalbital-Acet-Caffeine Tablet PO ONE (17:45)
[2017-02-24] MEDS ORDERED: Butalbital-Acet-Caffeine Tablet PO PRN (18:35)
[2017-02-24] MEDS ORDERED: cloNIDine 0.1 mg Tablet PO SCH (21:00)
[2017-02-24] MEDS: Insulin GLARgine 100 Unit/mL Syringe SUBQ SCH (22:53)
[2017-02-25 03:20] LABS: BASOPHILS % (AUTO) 0.1 % (0-3)
[2017-02-25 03:31] LABS: EOSINOPHILS % (AUTO) 1.3 % (0-5); MONOCYTES % (AUTO) 7.8 % (4-12); Mean Corpuscular Volume 67.1 fL (81-100); NEUTROPHILS % (AUTO) 60.3 % (40-74); Platelet Count 153 bil/L (150-400)
[2017-02-25 03:56] LABS: Magnesium 1.6 mg/dL (1.6-2.6); Phosphorus 3.6 mg/dL (2.5-4.9)
[2017-02-25 06:21] VITALS: BP 143/80; PULSE 75; RESP 18; O2SAT 100
--- NOTE | 2017-02-25 06:51 | NUR ---
Fever/Sputum sample needed Fever 38 at pm, Fioricet (APAP 325mg included) given by day shift RN, cold wash cloth on, T resolved gradually. Pt on scheduled ABX. Denies cough overnight, pt informed need sputum sample when possible.
[2017-02-25] MEDS: Insulin LISPRO 300 Unit/3 mL Inj SUBQ SCH ×4 (08:00→22:01)
[2017-02-25] MEDS: cloNIDine 0.1 mg Tablet PO SCH ×2 (08:42→21:00)
[2017-02-25] MEDS: Pantoprazole 40 mg ER24 Tablet PO SCH (08:43)
[2017-02-25] MEDS: cefTRIAXone Inj 2,000 MG in Dextrose 5% Minibag Plus 50 ML IV SCH (09:49)
[2017-02-25 12:30] VITALS: BP 128/77; PULSE 72; RESP 16; O2SAT 97
--- NOTE | 2017-02-25 17:55 | NUR ---
NURSING DAYS (02/25) 7-7 P-Patient upset about belongings locked up in closet. threatening to leave AMA. Denies IVD use and not cooperative with staff. I- Nurse explained to patient hospital policy regarding IVD use and patient's belongings. MD made aware and also tried to explain situation to patient, explained risks involved in leaving with UTI and pneumonia. Security in room and allowed patient ro remove shower items from closet. Charge nurse called and she (RL) tried to explain policy to patient. E- Patient not happy about locked closet but has chooses at this time to remain in hospital.
[2017-02-25] MEDS ORDERED: Albuterol 2.5 mg/3 mL Inhalation Solution NEB PRN (18:50)
--- NOTE | 2017-02-25 19:55 | PCM.PNMED ---
Subjective Date of Service Feb 25, 2017 Subjective This a.m. I was called to the patient room as the patient was threatening to leave AMA. She was apparently fine until security had to be called to open her cupboard to get her stuff out after she said she wanted to take a shower. She started yelling because she never had to go through this at this hospital. She claims that she does not have IV drug use history even though it has been documented several times in the records, she says while she does do meth, she does not do IV. After checking the records I made it clear to her that she should stay for her medical statement to get her to pneumonia taking care of. But, we can not go against the hospital protocol. At a follow up visit, pt was more subdued and said she would talk to me about her health. She says that she has had fevers and chills overnight, she is coughing still and Tessalon Perles are not helping. She has a left lower quadrant pain and she feels she is wheezing a bit. She states she does not need a nicotine patch , asking to not give her ketorolac. Exam Vital Signs Vital Sign - Last Date Time Temp Pulse Resp B/P Pulse Ox O2 Delivery O2 Flow Rate FiO2 02/25/17 06:21 36.9 75 18 143/80 100 Room Air 02/23/17 15:40 2.00 Intake and Output 02/24/17 02/24/17 02/25/17 Cumulative From/Thru 15:00 23:00 07:00 02/22/17 12:17 - 02/24/17 17:03 Intake Total 1929 ml 12776 ml Output Total 1250 ml 3250 ml Balance 679 ml 6932 ml Intake Oral 1112 ml 3128 ml IV Total 817 ml 7054 ml Output Urine Total 1250 ml 3250 ml # Voids 2 # Bowel Movements 1 1 Exam General: No acute distress, well-developed, well-nourished, minimally cooperative. HEENT: Normocephalic, atraumatic. Pupils equal, round, and reactive to light and accommodation. Anicteric sclerae, moist conjunctivae, and no lid lag. Moist mucosa. Neck: Supple with full range of motion. No jugular venous distension. No lymphadenopathy or thyromegaly. Cardiovascular: Regular rate and rhythm. There is no rub, murmurs, or gallop appreciated Pulmonary: Crackles at right base. Normal respiratory effort with no use of accessory muscles. Abdomen: Bowel tones present. Soft, nondistended. Moderate tenderness to palpation in LUQ Extremities: No clubbing, cyanosis, edema appreciated. Skin: Old scars are present on both of her shins Neurological: no focal deficits Psychiatric: Labile affect, angry mood. Alert and oriented to self and place. IVs and Medications IV Fluids None Medications Reviewed: Medications were reviewed in detail Lab and Diagnostics Result Diagram: 02/25/1723402/25/17 0235 X-Rays, CTs and MRIs CT ANGIO CHEST PULMONARY EMBOLISM IMPRESSION: Suboptimal evaluation due to poor heterogeneous opacification of the pulmonary arteries. No gross or central filling defect seen to suggest pulmonary embolism. Dense consolidation within the right lower lobe most likely pneumonia although recommend continued followup with short interval chest CT or chest radiographs to exclude underlying mass after treatment. Recommend clinical correlatio Dictated by: Baljit Mendez M.D. on 02/22/2017 at 17:31 CT KUB IMPRESSION: 1. Right lower lobe pneumonia. Chest x-ray is recommended for initial assessment and for baseline for future followup examinations. 2. Nonobstructing bilateral nephrolithiasis. No evidence of urinary tract obstruction. Small nonobstructing distal ureteral calculi cannot be excluded. 3. Normal appendix. Dictated by: Kierra Camacho M.D. on 02/22/2017 at 15:36 X-RAY CHEST ONE VIEW, PORTABLE IMPRESSION: Right lung base pneumonia. Continued plain film surveillance is recommended to ensure resolution, and to exclude underlying or central malignancy. Dictated by: Kierra Camacho M.D. on 02/22/2017 at 16:43 Cardiac Echo Impressions Interpretation Summary There is mild-moderate concentric left ventricular hypertrophy. The ejection fraction is estimated to be 65-70%. The aortic valve is slightly calcified. There is trace aortic regurgitation. There is mild tricuspid regurgitation. The right ventricular systolic pressure is estimated at 31 mmHg assuming a right atrial pressure of 3 mm Hg. No evidence of a vegetation. Consider SHANTE if clincally indicated. Assessment & Plan Mirta Robert is a 47 year old woman with past medical history significant for hypertension, diabetes mellitus, past history of IV drug use and hepatitis C who presented to the [facility] emergency department today due to complaint of abdominal pain and chest pain that started earlier today. Sepsis, secondary to pneumonia, present on admission, improving. -Tachycardia, RR, leukocytosis and elevated lactate on admission. Sources are Pneumonia and UTI. Treatment as below. -Procalcitonin 2.02. Trending down 1.41 -WBC bumps up today at 13.4 but bandemia resolved. Lactic acid normalized as well. - lactate levels normalized -Cultures and antibiotics as below. Strep pneumoniae right lower lobe community acquired pneumonia, present on admission, active - Strep antigen positive. - Appreciate Dr. Medellin's input. We will continue Azithromycin until tomorrow ( 3 days total) and Ceftriaxone until she is afebrile for 48 hours. Will consider transition to Amoxicillin PO TID for a total of 7 days tomorrow. Day 2 on antibiotics. - Negative Respiratory viral PCR and MRSA screen. - Sputum culture and blood cultures are negative to date - QuantiFeron gold pending, but possibility of TB is low per ID. E. coli UTI, acute, POA, active. - Urine culture revealed E. coli that is sensitive to Ceftriaxone. - continue Ceftriaxone as above. Hemoptysis, present on admission, active -Likely secondary to pneumonia. However, given the patient's homeless status, cannot rule out TB, although more suggestive of purulent sputum due to bacterial process. -awaits Quant Gold, ABF with NAAT. -Follow up with Infectious disease New murmur, concerning for endocarditis, present on admission, unlikely. -There was concern of endocarditis on admission due to new murmur appreciated. However, I did not appreciate any murmur today. -Blood cultures pending. -Echo normal. No evidence of vegetations or valvular abnormalities. -Follow clinically. Diabetes mellitus, uncertain type, present on admission, a1c12.8 -BG 171 this AM, continue 15 units of Lantus nightly with high dose correctional Lispro -- Added mealtime insulin of 4 units 3 times a day based on her sliding scale requirements Chest pain, likely secondary to pneumonia, present on admission, active -Trop negative x 2. EKG normal. -Pain control with Tramadol and Tylenol. -Discontinued ketorolac per patient request chronic, stable, resolved Hepatitis C, present on admission -Obtain viral load -Patient will need further workup and treatment as an outpatient. Needle exposure with history of IVDU, present on admission -HIV panel ordered by ED -Hep B and hep C positive, HIV negative Severe asymptomatic hypertension, likely secondary to clonidine withdrawal, present on admission, active -Change clonidine dose to twice a day 0.1 mg CODE STATUS: FULL CODE dispo: likely 2-3more days, appreciate SW eval for optimal dispo Pain Evaluation: Adequate Pain Control GI Prophylaxis: Proton Pump Inhibitor VTE Mechanical Devices: Intermittant Pneumatic CD Resuscitation Status: CPR: Attempt Resuscitation Time spent 40 minutes minutes Yolanda Galarza DO Feb 25, 2017 09:59
[2017-02-25 20:29] VITALS: BP 170/81; PULSE 81; RESP 18; O2SAT 96
[2017-02-25] MEDS: Codeine-guaiFENesin 5 mL Syrup PO PRN (21:00)
[2017-02-25] MEDS: Insulin GLARgine 100 Unit/mL Syringe SUBQ SCH (21:07)
[2017-02-25 23:13] LABS: Unsaturated Iron Binding 202.4 ug/dL
[2017-02-26] MEDS: Codeine-guaiFENesin 5 mL Syrup PO PRN (03:33)
[2017-02-26 05:17] VITALS: BP 168/89; PULSE 73; RESP 18; O2SAT 98
--- NOTE | 2017-02-26 05:45 | NUR ---
Cough Pt. c/o of cough and given new order of robitussin po q4 hrs, given twice this shift with pt. state of relief, encouraged fluids and deep breath, Denies any discomfort, hourly checks and all needs attended.
[2017-02-26 05:54] LABS: Mean Corpuscular Hemoglobin 21.6 pg (27.0-35.0); Mean Corpuscular Volume 67.3 fL (81-100)
[2017-02-26] MEDS: cloNIDine 0.1 mg Tablet PO SCH ×2 (07:51→20:42)
[2017-02-26] MEDS: Pantoprazole 40 mg ER24 Tablet PO SCH (07:51)
[2017-02-26] MEDS: Insulin LISPRO 300 Unit/3 mL Inj SUBQ SCH ×4 (07:51→20:41)
[2017-02-26] MEDS: Codeine-guaiFENesin 10 mL Syrup PO PRN ×2 (08:24→18:46)
[2017-02-26] MEDS: cefTRIAXone Inj 2,000 MG in Dextrose 5% Minibag Plus 50 ML IV SCH (08:25)
[2017-02-26 10:00] VITALS: BP 116/71; PULSE 71; RESP 20; O2SAT 100
[2017-02-26 13:26] VITALS: BP 146/80; PULSE 79; RESP 20; O2SAT 99
[2017-02-26 13:30] VITALS: PULSE 78; RESP 18; O2SAT 98
--- NOTE | 2017-02-26 13:34 | NUR ---
Cough Patient had complaints of cough and requested PRN Robitussin. Cough was not heard by staff. PRN cough syrup was administered as ordered. Patient states the medication is very helpful.
--- NOTE | 2017-02-26 13:55 | NUR ---
Social Work Note - Continued D/C plan, attempted CD assessment Mirta Robert is a 47 yr old who was admitted for pylonephritis, pneumonia, Substance use. CLOD PULLER met with pt - pt is homeless, has been living in a tent for the past few years. She states that she wants help getting into a motel or into a permanent house. She has income from [employer] - $721 per month. She states that she has tried to get help from [employer]. She is not willing to go to [place] house or to [employer] or [employer]. CLOD PULLER provided community resources - Pt declined resources - states that no one will help her. CLOD PULLER explored Chemical Dependency - Pt became defensive - stating that she has not used drugs in a long time. She states she smokes marijuana but denies any other drug use/ETOH use. CLOD PULLER explained MD's concern for +UDS for methamphetamine, Pt denies any use. She states that the last time she used was 15 years ago and did not want to talk about it. CLOD PULLER provided support - offered resources, left CLOD PULLER phone number. Pt denies any other needs. CLOD PULLER will follow if needs arise. Plan: Return to homelessness. MUKUL Nelson
[2017-02-26 18:10] VITALS: BP 162/91; PULSE 76; RESP 20; O2SAT 100
[2017-02-26 20:34] VITALS: BP 138/81; PULSE 83; RESP 16; O2SAT 94
[2017-02-26] MEDS: Insulin GLARgine 100 Unit/mL Syringe SUBQ SCH (20:41)
--- NOTE | 2017-02-26 23:31 | PCM.PNMED ---
Subjective Date of Service Feb 26, 2017 Subjective Patient is seen and examined. She says that she is still feeling poorly. I have discussed possibility of discharge in 1-2 days, she says "so I thought I was going to if I left AMA, now you are saying I can go home?" Seems to be worried about having to go home. She says that she is still coughing. Just not feeling well Exam Vital Signs Vital Sign - Last Date Time Temp Pulse Resp B/P Pulse Ox O2 Delivery O2 Flow Rate FiO2 02/26/17 20:34 37.1 83 16 138/81 94 Room Air 02/23/17 15:40 2.00 Intake and Output 02/25/17 02/25/17 02/26/17 Cumulative From/Thru 15:00 23:00 07:00 02/22/17 12:17 - 02/26/17 06:51 Intake Total 250 ml 786 ml 450 ml 48283 ml Output Total 1850 ml 5100 ml Balance 250 ml 786 ml -1400 ml 6568 ml Intake Oral 250 ml 786 ml 450 ml 4614 ml IV Total 7054 ml Output Urine Total 1850 ml 5100 ml # Voids 3 4 9 # Bowel Movements 2 3 Exam General: No acute distress, well-developed, well-nourished, minimally cooperative. HEENT: Normocephalic, atraumatic. Pupils equal, round, and reactive to light and accommodation. Anicteric sclerae, moist conjunctivae, and no lid lag. Moist mucosa. Neck: Supple with full range of motion. No jugular venous distension. No lymphadenopathy or thyromegaly. Cardiovascular: Regular rate and rhythm. Low grade systolic murmur appreciated Pulmonary: Mild wheezing at right base. Normal respiratory effort with no use of accessory muscles. Abdomen: Bowel tones present. Soft, nondistended. Nontender to palpation in LUQ Extremities: No clubbing, cyanosis, edema appreciated. Skin: Old scars are present on both of her shins Neurological: no focal deficits Psychiatric: Labile affect, angry mood. Alert and oriented to self and place. IVs and Medications Medications Reviewed: Medications were reviewed in detail Lab and Diagnostics Result Diagram: 02/26/17 0530 02/26/17 0530 X-Rays, CTs and MRIs CT ANGIO CHEST PULMONARY EMBOLISM IMPRESSION: Suboptimal evaluation due to poor heterogeneous opacification of the pulmonary arteries. No gross or central filling defect seen to suggest pulmonary embolism. Dense consolidation within the right lower lobe most likely pneumonia although recommend continued followup with short interval chest CT or chest radiographs to exclude underlying mass after treatment. Recommend clinical correlatio Dictated by: Baljit Mendez M.D. on 02/22/2017 at 17:31 CT KUB IMPRESSION: 1. Right lower lobe pneumonia. Chest x-ray is recommended for initial assessment and for baseline for future followup examinations. 2. Nonobstructing bilateral nephrolithiasis. No evidence of urinary tract obstruction. Small nonobstructing distal ureteral calculi cannot be excluded. 3. Normal appendix. Dictated by: Kierra Camacho M.D. on 02/22/2017 at 15:36 X-RAY CHEST ONE VIEW, PORTABLE IMPRESSION: Right lung base pneumonia. Continued plain film surveillance is recommended to ensure resolution, and to exclude underlying or central malignancy. Dictated by: Kierra Camacho M.D. on 02/22/2017 at 16:43 Cardiac Echo Impressions Interpretation Summary There is mild-moderate concentric left ventricular hypertrophy. The ejection fraction is estimated to be 65-70%. The aortic valve is slightly calcified. There is trace aortic regurgitation. There is mild tricuspid regurgitation. The right ventricular systolic pressure is estimated at 31 mmHg assuming a right atrial pressure of 3 mm Hg. No evidence of a vegetation. Consider SHANTE if clincally indicated. Assessment & Plan Mirta Robert is a 47 year old woman with past medical history significant for hypertension, diabetes mellitus, past history of IV drug use and hepatitis C who presented to the [facility] emergency department today due to complaint of abdominal pain and chest pain that started earlier today. Sepsis, secondary to Strep pneumoniae right lower lobe community acquired pneumonia, present on admission, improving. -Tachycardia, RR, leukocytosis and elevated lactate on admission. Sources are Pneumonia and UTI. Treatment as below. -Procalcitonin 2.02. Trending down 1.41 -WBC bumps up today at 13.4 but bandemia resolved. Lactic acid normalized as well. -lactate levels normalized -Cultures and antibiotics as below. - Strep antigen positive. - Appreciate Dr. Medellin's input. Azithromycin was stopped when 02/25 and Ceftriaxone until she is afebrile for 48 hours. Will consider transition to Amoxicillin PO TID for a total of 7 days. Day 4 on ceftriaxone. She has been afebrile for a couple days now - Negative Respiratory viral PCR and MRSA screen. - Sputum culture and blood cultures are negative to date - QuantiFeron gold pending, but possibility of TB is low per ID. E. coli UTI, acute, POA, active. - Urine culture revealed E. coli that is sensitive to Ceftriaxone. - continue Ceftriaxone as above. Hemoptysis, present on admission, active -Likely secondary to pneumonia. However, given the patient's homeless status, cannot rule out TB, although more suggestive of purulent sputum due to bacterial process. -awaits Quant Gold, ABF with NAAT. -Follow up with Infectious disease Iron Deficiency Anemia, POA -- Iron panel showed mixed picture of MICHAEL and chronic disease -- Murmurs could be due to anemia -- Continue iron supplementation at d/c -- Consider Venofer infusion New murmur, concerning for endocarditis, present on admission, unlikely. -There was concern of endocarditis on admission due to new murmur appreciated. However, I did not appreciate any murmur today. -Blood cultures pending. -Echo normal. No evidence of vegetations or valvular abnormalities. -Follow clinically. Diabetes mellitus, uncertain type, present on admission, a1c12.8 -BG 171 this AM, continue 15 units of Lantus nightly with high dose correctional Lispro -Added mealtime insulin of 4 units 3 times a day based on her sliding scale requirements Chest pain, likely secondary to pneumonia, present on admission, active -Trop negative x 2. EKG normal. -Pain control with Tramadol and Tylenol. -Discontinued ketorolac per patient request chronic, stable, resolved Hepatitis C, present on admission -Obtain viral load -Patient will need further workup and treatment as an outpatient. Needle exposure with history of IVDU, present on admission -HIV panel ordered by ED -Hep B and hep C positive, HIV negative Severe asymptomatic hypertension, likely secondary to clonidine withdrawal, present on admission, active -Changed clonidine dose to three times a day 0.1 mg CODE STATUS: FULL CODE dispo: likely 1-2 more days, appreciate MARTIN lawrence for optimal dispo, pt is home less GI Prophylaxis: Proton Pump Inhibitor VTE Mechanical Devices: Intermittant Pneumatic CD Resuscitation Status: CPR: Attempt Resuscitation Time spent 25 min Yolanda Galarza DO Feb 26, 2017 23:31
[2017-02-27 05:53] VITALS: BP 139/82; PULSE 74; RESP 16; O2SAT 96
--- NOTE | 2017-02-27 07:15 | NUR ---
Uneventful Night Pt states only mild pain at chest with cough,declines pain med offered, sometimes cough, nonproductive, Tessalon kaushik given,cough improved some. Crackles at left posterior LL,coarse lung sounds at right lung. VSS, afebrile. Denies SOB/n/v/abdominal pain or headache.
[2017-02-27] MEDS: Pantoprazole 40 mg ER24 Tablet PO SCH (08:04)
[2017-02-27] MEDS: cloNIDine 0.1 mg Tablet PO SCH ×3 (08:05→21:28)
[2017-02-27] MEDS: cefTRIAXone Inj 2,000 MG in Dextrose 5% Minibag Plus 50 ML IV SCH (08:06)
[2017-02-27] MEDS: Insulin LISPRO 300 Unit/3 mL Inj SUBQ SCH ×4 (08:07→21:32)
[2017-02-27] MEDS: Codeine-guaiFENesin 10 mL Syrup PO PRN ×3 (08:25→21:28)
[2017-02-27 09:23] VITALS: PULSE 86; RESP 16; O2SAT 93
[2017-02-27 13:04] VITALS: BP 120/74; PULSE 76; RESP 18; O2SAT 100
--- NOTE | 2017-02-27 14:04 | NUR ---
NUTRITION/DIABETES EDUCATION A1c 12.8: Attempted to discuss diabetic diet/answer questions re diabetic handouts that were left with pt on 02/25, pt reports no questions, does not want to discuss information. Pt reports she would possibly be willing to attend outpatient diabetes program. Referral sent to outpt. dm program. Noted pt is homeless per social media developer note, pt states phone number obtained is most up to date. Nutrition will sign off at this point re diabetes education as have attempted x 3. Addendum: 02/27/17 at [address] No phone number avail. in EMR; unable to complete referral at this time. Will follow up with SW if housing obtained/phone number/contact information available closer to time of discharge. Pt was left with outpt. brochure and can come in to outpt program to schedule appointments if desired.
--- NOTE | 2017-02-27 14:14 | PCM.PNMED ---
Subjective Date of Service Feb 27, 2017 Subjective Overnight patient notes presence of significant cough, which is now more productive and also causing more intercostal chest pain. Her breathing is perhaps slightly improved. She has not experienced fever or chills over past 24 hours. Exam Vital Signs Vital Sign - Last Date Time Temp Pulse Resp B/P Pulse Ox O2 Delivery O2 Flow Rate FiO2 02/27/17 13:04 36.8 76 18 120/74 100 Room Air 02/23/17 15:40 2.00 Intake and Output 02/26/17 02/26/17 02/27/17 Cumulative From/Thru 15:00 23:00 07:00 02/22/17 12:17 - 02/27/17 06:34 Intake Total 2370 ml 250 ml 14201 ml Output Total 1800 ml 700 ml 7600 ml Balance 570 ml -450 ml 6688 ml Intake Oral 2360 ml 250 ml 7224 ml IV Total 10 ml 7064 ml Output Urine Total 1800 ml 700 ml 7600 ml # Voids 9 # Bowel Movements 0 3 General: Alert, Oriented X3, Cooperative, Moderate Distress Chest & Lungs: Coarse breath sounds, Other (diffuse coarse breath sounds with expiratory wheezes. No focal consolidation noted on auscultation) Cardiovascular: Regular Rate/Rhythm Extremities: No cyanosis/clubbing/edma bilat Neurological: Grossly Neurologically Intact IVs and Medications Medications Reviewed: Medications were reviewed in detail Lab and Diagnostics Result Diagram: 02/26/17 0530 02/26/17 0530 X-Rays, CTs and MRIs CT ANGIO CHEST PULMONARY EMBOLISM IMPRESSION: Suboptimal evaluation due to poor heterogeneous opacification of the pulmonary arteries. No gross or central filling defect seen to suggest pulmonary embolism. Dense consolidation within the right lower lobe most likely pneumonia although recommend continued followup with short interval chest CT or chest radiographs to exclude underlying mass after treatment. Recommend clinical correlatio Dictated by: Baljit Mendez M.D. on 02/22/2017 at 17:31 CT KUB IMPRESSION: 1. Right lower lobe pneumonia. Chest x-ray is recommended for initial assessment and for baseline for future followup examinations. 2. Nonobstructing bilateral nephrolithiasis. No evidence of urinary tract obstruction. Small nonobstructing distal ureteral calculi cannot be excluded. 3. Normal appendix. Dictated by: Kierra Camacho M.D. on 02/22/2017 at 15:36 X-RAY CHEST ONE VIEW, PORTABLE IMPRESSION: Right lung base pneumonia. Continued plain film surveillance is recommended to ensure resolution, and to exclude underlying or central malignancy. Dictated by: Kierra Camacho M.D. on 02/22/2017 at 16:43 Cardiac Echo Impressions Interpretation Summary There is mild-moderate concentric left ventricular hypertrophy. The ejection fraction is estimated to be 65-70%. The aortic valve is slightly calcified. There is trace aortic regurgitation. There is mild tricuspid regurgitation. The right ventricular systolic pressure is estimated at 31 mmHg assuming a right atrial pressure of 3 mm Hg. No evidence of a vegetation. Consider SHANTE if clincally indicated. Assessment & Plan Mirta Robert is a 47 year old woman with past medical history significant for hypertension, diabetes mellitus, past history of IV drug use and hepatitis C who presented to the [facility] emergency department today due to complaint of abdominal pain and chest pain that started earlier today. Sepsis, secondary to Strep pneumoniae right lower lobe community acquired pneumonia, present on admission, improving. -Tachycardia, RR, leukocytosis and elevated lactate on admission. Sources are Pneumonia and UTI. Treatment as below. -Procalcitonin 2.02. Trending down 1.41 -WBC bumped further at 13.4 but bandemia resolved. Lactic acid normalized as well. -Cultures and antibiotics as below: - Strep antigen positive. - Appreciate Dr. Medellin's input. Azithromycin was stopped when 02/25 and Ceftriaxone until she is afebrile for 48 hours. Will consider transition to Amoxicillin PO TID for a total of 7 days. Day 4 on ceftriaxone. She has been afebrile for a couple days now - Negative Respiratory viral PCR and MRSA screen. - Sputum culture and blood cultures are negative to date - QuantiFeron gold still pending, but possibility of TB is low per ID. E. coli UTI, acute, POA, active. - Urine culture revealed E. coli that is sensitive to Ceftriaxone. - continue Ceftriaxone as above. Hemoptysis, present on admission, active -Likely secondary to pneumonia. However, given the patient's homeless status, cannot rule out TB, although more suggestive of purulent sputum due to bacterial process. -awaits Quant Gold, ABF with NAAT. -Follow up with Infectious disease Iron Deficiency Anemia, POA -- Iron panel showed mixed picture of MICHAEL and chronic disease -- Murmurs could be due to anemia -- Continue iron supplementation at d/c -- Consider Venofer infusion New murmur, concerning for endocarditis, present on admission, unlikely. -There was concern of endocarditis on admission due to new murmur appreciated. However, I did not appreciate any murmur today. -Blood cultures pending. -Echo normal. No evidence of vegetations or valvular abnormalities. -Follow clinically. Diabetes mellitus, uncertain type, present on admission, a1c12.8 -BG 171 this AM, continue 15 units of Lantus nightly with high dose correctional Lispro -Added mealtime insulin of 4 units 3 times a day based on her sliding scale requirements Chest pain, likely secondary to pneumonia, present on admission, active -Trop negative x 2. EKG normal. -Pain control with Tramadol and Tylenol to a degree, Ibuprofen added in addition for likely costochondritis. chronic, stable, resolved Hepatitis C, present on admission -Obtain viral load -Patient will need further workup and treatment as an outpatient. Needle exposure with history of IVDU, present on admission -HIV panel ordered by ED -Hep B and hep C positive, HIV negative Severe asymptomatic hypertension, likely secondary to clonidine withdrawal, present on admission, active -Changed clonidine dose to three times a day 0.1 mg CODE STATUS: FULL CODE dispo: likely 1-2 more days, appreciate MARTIN lawrence for optimal dispo, pt is home less Pain Evaluation: Adequate Pain Control GI Prophylaxis: Proton Pump Inhibitor VTE Mechanical Devices: Intermittant Pneumatic CD Resuscitation Status: CPR: Attempt Resuscitation Time spent 30 minutes Sujit Helms DO Feb 27, 2017 14:14
--- NOTE | 2017-02-27 19:40 | NUR ---
Blood sugars Morning and afternoon blood sugars elevated in the 150-200 range. Administered insulin with nutritional dosing. Dinner blood sugar check was at 356. Pt reported she had been drinking juice. Provided education about beverage choices. Pt willing to comply and drank diet soda instead.
[2017-02-27 20:07] VITALS: BP 116/71; PULSE 89; RESP 20; O2SAT 98
[2017-02-27 20:24] VITALS: PULSE 78; RESP 20; O2SAT 92
[2017-02-27] MEDS: Insulin GLARgine 100 Unit/mL Syringe SUBQ SCH (21:32)
[2017-02-28 04:34] VITALS: BP 165/98; PULSE 83; RESP 18; O2SAT 95
[2017-02-28 05:47] LABS: BASOPHILS % (AUTO) 0.6 % (0-3); EOSINOPHILS % (AUTO) 2.6 % (0-5); MONOCYTES % (AUTO) 11.7 % (4-12); Mean Corpuscular Hemoglobin 22.2 pg (27.0-35.0); Mean Corpuscular Volume 65.6 fL (81-100); NEUTROPHILS % (AUTO) 32.2 % (40-74); Platelet Count 259 bil/L (150-400)
--- NOTE | 2017-02-28 06:31 | NUR ---
BG/panic attacks was 209 before bed. RN was about to draw up 1 unit of insulin when pt pressed call button stating he is feeling shaky. Withheld insulin and provided pt with a snack. Pt continually waking up and stating he cannot breathe at night, maintaining o2 sats in high 90s as per CPOX. Upon awakening about 10-12 times pt has sweats and uses call button every couple of minutes so that "he has someone to talk to" and "to calm him down". States that his partner and him are for the very first time ever and that this is giving him very bad panic attacks. Pt requested Trazadone to sleep which was not very effective. Addendum: 02/28/17 at 0635 by ROMÁN FAY RN IGNORE PREVIOUS NOTE ON INCORRECT PT Addendum: 02/28/17 at 0636 by ROMÁN FAY RN IGNORE NOTE-made on incorrect pt
--- NOTE | 2017-02-28 06:36 | NUR ---
ignore previous note-made on incorrect pt
--- NOTE | 2017-02-28 06:37 | NUR ---
Uneventful night Pt slept most of the night. Reported pain x1 which tramadol was effective for. Pleasant and cooperative with care.
[2017-02-28 07:26] VITALS: PULSE 70; RESP 16; O2SAT 93
[2017-02-28] MEDS ORDERED: Insulin GLARgine 100 Unit/mL Syringe SUBQ ONE (08:00)
[2017-02-28] MEDS: Pantoprazole 40 mg ER24 Tablet PO SCH (08:26)
[2017-02-28] MEDS: Codeine-guaiFENesin 10 mL Syrup PO PRN ×2 (08:27→17:31)
[2017-02-28] MEDS: cloNIDine 0.1 mg Tablet PO SCH ×3 (08:27→20:53)
[2017-02-28] MEDS: Insulin LISPRO 300 Unit/3 mL Inj SUBQ SCH ×4 (08:28→20:55)
[2017-02-28] MEDS: cefTRIAXone Inj 2,000 MG in Dextrose 5% Minibag Plus 50 ML IV SCH (08:31)
[2017-02-28 12:57] VITALS: BP 114/72; PULSE 77; RESP 18; O2SAT 94
--- NOTE | 2017-02-28 13:02 | PROG NOTE ---
[address] [address] PROGRESS NOTE PATIENT: MALICK BARR : 1970 MR#: [id number] ADMIT: 02/22/2017 JOB ID: [id number] DATE: 02/28/2017 REASON FOR FOLLOWUP: Pneumococcal pneumonia. INTERVAL HISTORY: Over the weekend, the patient has improved considerably. She no longer has any fever, chills or productive cough. Recall that previously she had copious rust-colored sputum which is now resolved. She still has paroxysms of cough, which are quite disturbing and mainly occur at night, but they are gradually improving. PHYSICAL EXAMINATION: Reveals an afebrile woman. Temp 36.4, pulse 70, respiratory rate 16, blood pressure 165/98. She is saturating well on room air. She is awake, alert, conversational. Oral cavity negative. Lungs still with some crackles at the right base. Cardiac tones without murmur. No skin rash. LABORATORIES: Include white count which is normalized at 9100, 48% lymphocytes. HIV is negative. Creatinine 0.52. LFTs normal. Procalcitonin has not been repeated for a couple days. It was last 1.31. Urinalysis without white cells. Hep B core positive. Hep B surface antigen negative. Hep C antibody positive. Hep C viral load positive at 24,000,000, so quite significant. HIV is negative. QuantiFERON Gold pending. Urine pneumococcal antigen was positive. Blood cultures were negative. IMPRESSION: This homeless patient presents with right-sided pneumococcal pneumonia. She is much improved here and is now entering her seventh day in the hospital, and in fact, her seventh day of antibiotics. At this point, I think the patient is essentially ready for discharge, and I will leave that final plan to the hospitalist, but she has completed a week of ceftriaxone as of tomorrow morning. Also, earlier in her stay, received a course of azithromycin, so I think her pneumococcal pneumonia has been adequately treated. At this point, one might consider repeat chest x-ray because of the depth and severity of her cough, but it is no longer productive and there is no more hemoptysis, so I am not terribly concerned. RECOMMENDATIONS: 1. Will continue with ceftriaxone through tomorrow morning. At that point, the patient has completed her antibiotic treatment. 2. Repeat chest x-ray would be reasonable just to make sure there is no worsening or pleural effusion or other surprising finding. 3. Assuming that there are going to be no additional discoveries, ID will go ahead and sign off today but please do not hesitate to call if there are additional problems or issues. 4. This case discussed with Dr. Helms in detail.
--- NOTE | 2017-02-28 15:28 | NUR ---
Activity Pt not getting out of bed much during shift, just up to BR. Reports getting a little dizzy and lightheaded when getting up. Pt willing to ambulate around unit for further evaluation. Walked around unit 1x and out into corridor. Pt reports feeling a little light headed when ambulating but no SOB. SpO2 at 92%. At end of walk pt reported that starting to feel the chest pain again. Pt has been reporting chest pain/soreness from coughing -r/t current Pneumonia. Plan to continue walking at least 1x/day.
--- NOTE | 2017-02-28 15:45 | PCM.PNMED ---
Subjective Date of Service Feb 28, 2017 Subjective Patient is a denied any recurrence of fever or chills. Severity of cough as well as less movement overnight. Chest discomfort with coughing however is persistent especially in right side exacerbated with direct palpation and deep breathing. Appetite is good, no other acute complaints at this time. Exam Vital Signs Vital Sign - Last Date Time Temp Pulse Resp B/P Pulse Ox O2 Delivery O2 Flow Rate FiO2 02/28/17 12:57 36.8 77 18 114/72 94 Room Air 02/23/17 15:40 2.00 Intake and Output 02/27/17 02/27/17 02/28/17 Cumulative From/Thru 15:00 23:00 07:00 02/22/17 12:17 - 02/28/17 06:26 Intake Total 80 ml 2009 ml 918 ml 20697 ml Output Total 400 ml 600 ml 8600 ml Balance 80 ml 1609 ml 318 ml 8695 ml Intake Oral 2009 ml 918 ml 05452 ml IV Total 80 ml 7144 ml Output Urine Total 400 ml 600 ml 8600 ml # Voids 9 # Bowel Movements 3 Exam General: Alert, Oriented X3, Cooperative, Mild Distress Chest & Lungs: Coarse breath sounds, diffuse coarse breath sounds with expiratory wheezes. No focal consolidation noted on auscultation Cardiovascular: Regular Rate/Rhythm Extremities: No cyanosis/clubbing/edema bilat Neurological: Grossly Neurologically Intact IVs and Medications Medications Reviewed: Medications were reviewed in detail Lab and Diagnostics Result Diagram: 02/28/17 0500 02/28/17 0500 X-Rays, CTs and MRIs CT ANGIO CHEST PULMONARY EMBOLISM IMPRESSION: Suboptimal evaluation due to poor heterogeneous opacification of the pulmonary arteries. No gross or central filling defect seen to suggest pulmonary embolism. Dense consolidation within the right lower lobe most likely pneumonia although recommend continued followup with short interval chest CT or chest radiographs to exclude underlying mass after treatment. Recommend clinical correlatio Dictated by: Baljit Mendez M.D. on 02/22/2017 at 17:31 CT KUB IMPRESSION: 1. Right lower lobe pneumonia. Chest x-ray is recommended for initial assessment and for baseline for future followup examinations. 2. Nonobstructing bilateral nephrolithiasis. No evidence of urinary tract obstruction. Small nonobstructing distal ureteral calculi cannot be excluded. 3. Normal appendix. Dictated by: Kierra Camacho M.D. on 02/22/2017 at 15:36 X-RAY CHEST ONE VIEW, PORTABLE IMPRESSION: Right lung base pneumonia. Continued plain film surveillance is recommended to ensure resolution, and to exclude underlying or central malignancy. Dictated by: Kierra Camacho M.D. on 02/22/2017 at 16:43 Cardiac Echo Impressions Interpretation Summary There is mild-moderate concentric left ventricular hypertrophy. The ejection fraction is estimated to be 65-70%. The aortic valve is slightly calcified. There is trace aortic regurgitation. There is mild tricuspid regurgitation. The right ventricular systolic pressure is estimated at 31 mmHg assuming a right atrial pressure of 3 mm Hg. No evidence of a vegetation. Consider SHANTE if clincally indicated. Assessment & Plan Mirta Robert is a 47 year old woman with past medical history significant for hypertension, diabetes mellitus, past history of IV drug use and hepatitis C who presented to the [facility] emergency department today due to complaint of abdominal pain and chest pain that started earlier today. Sepsis, secondary to Strep pneumoniae right lower lobe community acquired pneumonia, present on admission, improving. -Tachycardia, RR, leukocytosis and elevated lactate on admission. Sources are Pneumonia and UTI. Treatment as below. -Procalcitonin 2.02. Trending down 1.41 -WBC bumped further at 13.4 but bandemia resolved. Lactic acid normalized as well. -Cultures and antibiotics as below: - Strep antigen positive. - Appreciate Dr. Medellin's input. Azithromycin was stopped when 02/25 and Ceftriaxone until she is afebrile for 48 hours. Will consider transition to Amoxicillin PO TID for a total of 7 days. Day 4 on ceftriaxone. She has been afebrile for a couple days now - Negative Respiratory viral PCR and MRSA screen. - Sputum culture and blood cultures are negative to date - QuantiFeron gold still pending, but possibility of TB is low per ID. - Patient to be complete antibiotic therapy tomorrow as recommended by infectious disease specialist. - Follow-up x-rays ordered and pending to evaluate resolution of pneumonia or at least improvement in findings, especially because of patient's persistent right-sided chest discomfort. E. coli UTI, acute, POA, active. - Urine culture revealed E. coli that is sensitive to Ceftriaxone. - continue Ceftriaxone as above. Hemoptysis, present on admission, active -Likely secondary to pneumonia. However, given the patient's homeless status, cannot rule out TB, although more suggestive of purulent sputum due to bacterial process. -awaits Quant Gold, ABF with NAAT. -Follow up with Infectious disease Iron Deficiency Anemia, POA -- Iron panel showed mixed picture of MICHAEL and chronic disease -- Murmurs could be due to anemia -- Continue iron supplementation at d/c -- Currently H&H stable -- May Consider Venofer infusion in future New murmur, concerning for endocarditis, present on admission, unlikely. -There was concern of endocarditis on admission due to new murmur appreciated. However, I did not appreciate any murmur today. -Blood cultures pending. -Echo normal. No evidence of vegetations or valvular abnormalities. -Follow clinically. Diabetes mellitus, uncertain type, present on admission, a1c12.8 -BG 171 this AM, continue 15 units of Lantus nightly with high dose correctional Lispro -Added mealtime insulin of 4 units 3 times a day based on her sliding scale requirements Chest pain, likely secondary to pneumonia, present on admission, active -Trop negative x 2. EKG normal. -Pain control with Tramadol and Tylenol to a degree, Ibuprofen added in addition for likely costochondritis. chronic, stable, resolved Hepatitis C, present on admission -Obtain viral load -Patient will need further workup and treatment as an outpatient. Needle exposure with history of IVDU, present on admission -HIV panel ordered by ED -Hep B and hep C positive, HIV negative Severe asymptomatic hypertension, likely secondary to clonidine withdrawal, present on admission, active -Changed clonidine dose to three times a day 0.1 mg CODE STATUS: FULL CODE dispo: likely discharge tomorrow, unfortunately few resources available likely back to street Pain Evaluation: Adequate Pain Control GI Prophylaxis: Proton Pump Inhibitor VTE Mechanical Devices: Intermittant Pneumatic CD Resuscitation Status: CPR: Attempt Resuscitation Time spent 25 minutes Sujit Helms DO Feb 28, 2017 15:45
--- NOTE | 2017-02-28 16:00 | NUR ---
Pt off floor for XRAY
--- NOTE | 2017-02-28 16:43 | DRSVH ---
PROCEDURE: X-RAY CHEST, TWO VIEWS ([id number]) INDICATIONS: pneumonia / persistent chest discomfort TECHNIQUE: 2 views of the chest were acquired. COMPARISON: [facility], CR, XR CHEST 1VW (PORTABLE), 02/22/2017, 16:18. FINDINGS: Surgical changes and devices: None. Lungs and pleura: No pleural effusions or pneumothorax. Decreased, mild airspace opacity within the right lung base. Mediastinum: Mediastinal contours are normal. Heart size is normal. Bones and chest wall: No suspicious bony abnormalities. Soft tissues appear unremarkable. IMPRESSION: Resolving right lower lobe pneumonia. Continued plain film surveillance is recommended to ensure resolution, and to exclude underlying or central malignancy. Dictated by: Kierra Camacho M.D. on 02/28/2017 at 16:40 Approved by: Kierra Camacho M.D. on 02/28/2017 at 16:41
[2017-02-28 20:19] VITALS: BP 149/83; PULSE 74; RESP 16; O2SAT 100
[2017-02-28] MEDS ORDERED: Insulin GLARgine 100 Unit/mL Syringe SUBQ SCH (21:00)
[2017-03-01 05:46] VITALS: BP 126/75; PULSE 70; RESP 16; O2SAT 95
[2017-03-01 06:15] LABS: BASOPHILS % (AUTO) 0.4 % (0-3); EOSINOPHILS % (AUTO) 2.3 % (0-5); Mean Corpuscular Hemoglobin 21.7 pg (27.0-35.0); Mean Corpuscular Volume 67.6 fL (81-100); NEUTROPHILS % (AUTO) 35.5 % (40-74); Platelet Count 266 bil/L (150-400)
--- NOTE | 2017-03-01 06:31 | NUR ---
Uneventful Night: Pt had an uneventful night, no c/o pain, chest pain or SOB. Pt slept most of the night, pleasant and cooperative with care.
[2017-03-01] MEDS: cefTRIAXone Inj 2,000 MG in Dextrose 5% Minibag Plus 50 ML IV SCH (08:39)
[2017-03-01] MEDS: Pantoprazole 40 mg ER24 Tablet PO SCH (08:40)
[2017-03-01] MEDS: cloNIDine 0.1 mg Tablet PO SCH ×2 (08:41→13:49)
[2017-03-01] MEDS: Insulin LISPRO 300 Unit/3 mL Inj SUBQ SCH ×2 (08:42→12:36)
--- NOTE | 2017-03-01 09:26 | PCM.DC.MED ---
Discharge Summary Date of Service Mar 01, 2017 Dates of Hospitalization Date of Hospital Admission Feb 22, 2017 at 15:35 Date of Discharge: Mar 01, 2017 Providers: Admitting Physician: Issa Roth MD Primary Care Physician: [facility]ata Hu Attending Physician: Sujit Helms DO Diagnosis at Time of Discharge Diagnosis at Time of Discharge Sepsis, secondary to Strep pneumoniae right lower lobe community acquired pneumonia, present on admission, improving. E. coli UTI, acute, POA, resolved/ treated. Hemoptysis, present on admission, resolved, Iron Deficiency Anemia, POA Diabetes mellitus, uncertain type, present on admission, a1c12.8 Chest pain, likely secondary to pneumonia, present on admission, improving Hepatitis C, present on admission Hepatitis B, present on admission Consultations Infectious disease, Dr Medellin. Procedures XRay, CTs & MRIs CT ANGIO CHEST PULMONARY EMBOLISM IMPRESSION: Suboptimal evaluation due to poor heterogeneous opacification of the pulmonary arteries. No gross or central filling defect seen to suggest pulmonary embolism. Dense consolidation within the right lower lobe most likely pneumonia although recommend continued followup with short interval chest CT or chest radiographs to exclude underlying mass after treatment. Recommend clinical correlatio Dictated by: Baljit Mendez M.D. on 02/22/2017 at 17:31 CT KUB IMPRESSION: 1. Right lower lobe pneumonia. Chest x-ray is recommended for initial assessment and for baseline for future followup examinations. 2. Nonobstructing bilateral nephrolithiasis. No evidence of urinary tract obstruction. Small nonobstructing distal ureteral calculi cannot be excluded. 3. Normal appendix. Dictated by: Kierra Camacho M.D. on 02/22/2017 at 15:36 X-RAY CHEST ONE VIEW, PORTABLE IMPRESSION: Right lung base pneumonia. Continued plain film surveillance is recommended to ensure resolution, and to exclude underlying or central malignancy. Dictated by: Kierra Camacho M.D. on 02/22/2017 at 16:43 Cardiac Echo Impression Interpretation Summary There is mild-moderate concentric left ventricular hypertrophy. The ejection fraction is estimated to be 65-70%. The aortic valve is slightly calcified. There is trace aortic regurgitation. There is mild tricuspid regurgitation. The right ventricular systolic pressure is estimated at 31 mmHg assuming a right atrial pressure of 3 mm Hg. No evidence of a vegetation. Consider SHANTE if clincally indicated. Brief History As per HPI by admitting physician, "Mirta Robert is a 47 year old woman with past medical history significant for hypertension, diabetes mellitus, past history of IV drug use and hepatitis C who presented to the [facility] emergency department today due to complaint of abdominal pain and chest pain that started earlier today. Patient is a very difficult historian and derailed the conversation quite frequently. A thorough history is quite difficult to obtain. Patient does mention that she has chest pain that is worse with inspiration as well as a cough and fevers. She also has noted diaphoresis and chills. She becomes quite frustrated at the interview process and does not want to participate in the conversation. From the ER report the patient states that she has felt poorly for over a month. The patient is homeless but has come down to [place] to stay in a boyfriends tent. She also states that she has had an accidental needle stick today but will not clarify beyond that. Dr. Ivory in the emergency department attempted to gather the history about this needle exposure but was unable to do so. Patient does state that she has history of hepatitis C but denies any past history of HIV. During my interview with her the patient began to have hemoptysis became very emotional about her illness. Of note, the patient gave emergency department multiple names to identify herself. In the emergency department her vital signs were notable for a pulse of 117 and a blood pressure of 180/81. Laboratory evaluation was notable for white count of 15.5 and a blood glucose of 334. One series of blood cultures was obtained due to difficulty with draws. CT of abdomen and pelvis to evaluate abdominal pain revealed right lower lobe pneumonia. Due to patient's hemoptysis a CTA was obtained to rule out pulmonary embolism and was negative for PE. She was treated with azithromycin and ceftriaxone, Tylenol, Toradol, Dilaudid, and 1 L of normal saline. The patient was admitted to the hospitalist service for further evaluation and treatment." Hospital Course Sepsis, secondary to Strep pneumoniae right lower lobe community acquired pneumonia, present on admission, improving. -Tachycardia, RR, leukocytosis and elevated lactate on admission. Sources are Pneumonia and UTI. Treatment as below. -Procalcitonin 2.02. Trending down 1.41 -WBC bumped further at 13.4 but bandemia resolved. Lactic acid normalized as well. -Cultures and antibiotics as below: - Strep antigen positive. - Appreciate Dr. Medellin's input. Azithromycin was stopped when 02/25 and Ceftriaxone until she is afebrile for 48 hours. Will consider transition to Amoxicillin PO TID for a total of 7 days. Day 4 on ceftriaxone. She has been afebrile for a couple days now - Negative Respiratory viral PCR and MRSA screen. - Sputum culture and blood cultures are negative to date - QuantiFeron gold still pending, but possibility of TB is low per ID. - Patient has completed antibiotic therapy as recommended by infectious disease specialist. - Follow-up x-rays demonstrated resolving pneumonia with some nodular findings of unclear etiology. FU XR in 3 months recommended to ensure no underlying malignant process present. E. coli UTI, acute, POA, active. - Urine culture revealed E. coli that is sensitive to Ceftriaxone. - antibiotic course completed. Hemoptysis, present on admission, active -Likely secondary to pneumonia. Resolved with treatment of underlying condition. Iron Deficiency Anemia, POA -- Iron panel showed mixed picture of MICHAEL and chronic disease -- Murmurs could be due to anemia -- Continued iron supplementation at d/c -- Currently H&H stable through hospital stay -- May Consider Venofer infusion in future if this condition proves recurrent. New murmur, concerning for endocarditis, present on admission, unlikely. -There was concern of endocarditis on admission due to new murmur appreciated. However, I did not appreciate any murmur today. -Blood cultures negative -Echo normal. No evidence of vegetations or valvular abnormalities. Diabetes mellitus, uncertain type, present on admission, a1c12.8 - 15 units of Lantus nightly with high dose correctional Lispro while in hospital - On discharge pt restarted on oral medications with plan to FU with PCP in next week to two weeks for further discussion and consideration of injectable insulin therapy group home. Chest pain, likely secondary to pneumonia, present on admission, active -Trop negative x 2. EKG normal. -Pain control with Tramadol and Tylenol to a degree, Ibuprofen added in addition for likely costochondritis. - Improving on DC, chest XR repeated with no evidence of alternative underlying condition.l Hypertension: --Clonidine 0.1mg initially continued HS from home therapy, increased to TID frequency given persistently elevated BP during hospitalization --TID dosing was continued on discharge. -- Addition of ACEi would be of benefit to DMII as well, and may be considered as adjunctive therapy in future. chronic, stable, resolved Hepatitis C and Hepatitis B, present on admission -Patient will need further workup and treatment as an outpatient. Needle exposure with history of IVDU, present on admission -HIV panel ordered by ED -Hep B and hep C positive, HIV negative Exam Vital Signs (Last) Date Time Temp Pulse Resp B/P Pulse Ox O2 Delivery O2 Flow Rate FiO2 03/01/17 08:54 Supplement Oxygen 03/01/17 05:46 36.7 70 16 126/75 95 02/23/17 15:40 2.00 Exam General: Alert, Oriented X3, Cooperative, No acute Distress Chest & Lungs: Coarse breath sounds, diffuse coarse breath sounds with expiratory wheezes. No focal consolidation noted on auscultation Cardiovascular: Regular Rate/Rhythm Extremities: No cyanosis/clubbing/edema bilat Neurological: Grossly Neurologically Intact Test 02/22/17 12:50 02/22/17 13:19 02/22/17 14:15 02/23/17 02:38 D-Dimer 0.71mg/L FEU (<0.50) Hemoglobin A1c 12.8% (4.8-5.6) Lipase 13U/L (13-60) Hold Daniels Top Tube Received (Received) Urine Color Yellow (YELLOW) Urine Appearance Hazy (CLEAR,HAZY) Urine pH 6.5 (5.0-8.0) Urine Specific [place] 1.010 (1.003-1.035) Urine Protein Tracemg/dL (NEG,TRACE) Urine Glucose (UA) 1000mg/dL (NEGATIVE) Urine Ketones Negativemg/dL (NEGATIVE) Urine Occult Blood Small (NEGATIVE) Urine Nitrite Positive (NEGATIVE) Urine Bilirubin Negative (NEGATIVE) Urine Urobilinogen 4.0mg/dL (NORMAL) Urine Leukocyte Esterase Negative (NEGATIVE) Urine RBC 0-2/hpf (0-2) Urine WBC 0-5/hpf (0-5) Urine Epithelial Cells Occasional/hpf (NONE-MOD) Urine Crystals None seen (NONE SEEN) Urine Bacteria Many/hpf (NONE-FEW) Urine Hyaline Casts None/lpf (NONE) Urine Granular Casts None seen (NONE SEEN) Urine Waxy Casts None seen (NONE SEEN) Urine Red Blood Cell Casts None seen (NONE SEEN) Urine White Blood Cell Casts None seen (NONE SEEN) Urine Mucus None seen (None Seen) Urine Trichomonas None seen (NONE SEEN) Urine Yeast None (NONE SEEN) Urinalysis Comment None Urine Culture Reflexed Indicated Hepatitis B Surface Antigen Negative (Negative) Hepatitis B Surface Antibody Reactive (.) Hepatitis C Antibody >11.0s/co ratio Hepatitis C Antibody Comment Comment (.) HIV (1&2) Ag and Ab, 4th Generation Non reactive (Non Reactive) Band Neutrophils % 21% (1-5) Metamyelocytes % 1% (0-0) Hematology Comments TB Test (QFT) Gold In Tube Negative (Negative) TB Test (QFT) Incubation Comment (.) TB Test (QFT) Mitogen >10.00IU/mL (.) TB Test (QFT) Antigen 0.03IU/mL (.) TB Test (QFT) Antigen Minus Nil <0.00IU/mL (.) TB Test (QFT) TB - Nil 0.04IU/mL (.) TB Test (QFT) Positive Criteria Comment (.) TB Test (QFT) Interpretation Comment (.) Test 02/23/17 09:03 02/23/17 10:53 02/23/17 22:20 02/25/17 02:35 Troponin T 0.010ug/L (0.0-0.011) Hepatitis B Core Total Antibody Positive (Negative) Hepatitis C Virus Quantitation See final resultsIU/mL Hepatitis C RNA (PCR) IUs/ml [id number]/mL (.) Hepatitis C RNA (PCR) log IUs/ml 7.384 (.) Hepatitis C RNA (PCR) log10 (.) Hepatitis C Comment Comment (.) Urine Legionella pneumophilia Ag Negative (Negative) Lactic Acid Level 1.4mmol/L (0.4-2.0) Phosphorus Level 3.6mg/dL (2.5-4.9) Magnesium Level 1.6mg/dL (1.6-2.6) Iron Level 18ug/dL (35-150) Total Iron Binding Capacity 220ug/dL (250-450) Percent Iron Saturation 8%sat (15-50) Unsaturated Iron Binding 202.4ug/dL Ferritin 197ng/mL (13-150) Vitamin B12 Level 735pg/mL (211-946) Folate 10.7ng/mL (>3.0) Procalcitonin 1.31ng/mL (0.00-0.08) Test 02/28/17 05:00 03/01/17 05:30 Total Bilirubin 0.2mg/dL (0.0-1.2) Aspartate Amino Transf (AST/SGOT) 37U/L (0-50) Alanine Aminotransferase (ALT/SGPT) 26U/L (0-32) Alkaline Phosphatase 117U/L (25-150) Total Protein 7.1g/dL (6.4-8.4) Albumin 3.0g/dL (3.4-5.0) White Blood Count 7.3th/mm3 (3.8-10.1) Red Blood Count 4.51mil/mm3 (3.90-5.20) Hemoglobin 9.8g/dL (12.0-15.6) Hematocrit 30.5% (35.0-46.0) Mean Corpuscular Volume 67.6fL (81-100) Mean Corpuscular Hemoglobin 21.7pg (27.0-35.0) Mean Corpuscular Hemoglobin Concent 32.1% (32.0-37.0) Red Cell Distribution Width 14.3% (12.3-15.4) Platelet Count 266bil/L (150-400) Neutrophils (%) (Auto) 35.5% (40-74) Lymphocytes (%) (Auto) 46.8% (14-46) Monocytes (%) (Auto) 12.0% (4-12) Eosinophils (%) (Auto) 2.3% (0-5) Basophils (%) (Auto) 0.4% (0-3) Sodium Level 138mEq/L (134-144) Potassium Level 4.6mEq/L (3.5-5.2) Chloride Level 100mEq/L (97-108) Carbon Dioxide Level 26mmol/L (18-29) Blood Urea Nitrogen 17mg/dL (6-24) Creatinine 0.55mg/dL (0.57-1.00) Estimat Glomerular Filtration Rate 151mL/min (>59) Glucose Level 288mg/dL (60-99) Calcium Level 8.9mg/dL (8.5-10.1) Discharge Medications Discharge Medications Clonidine (Clonidine) 0.1 Mg Tablet 0.1 MG PO HS (Reported) Clonidine (Catapres) 0.1 Mg Tablet 0.1 MG PO TID Prescribed by: SUJIT HELMS DO Doxepin (Doxepin) 10 Mg Capsule 10 MG PO HS (Reported) Ferrous Sulfate (Feosol) 325 Mg Tablet 325 MG PO BIDWM Prescribed by: SUJIT HELMS DO Metformin (Metformin) 850 Mg Tablet 850 MG PO BID Prescribed by: SUJIT HELMS DO As needed Hydroxyzine HCl (HydrOXYzine Hcl) 50 Mg Tablet 50 MG PO TID PRN PRN For Itching (Reported) Naproxen (Naprosyn) 500 Mg Tablet 500 MG PO BID PRN PRN For Pain Prescribed by: CALIXTO REYNOLDS Miscellaneous Medications Omega3/Dha/Epa/Fish Oil/Vit D3 ([place]-3 + Vitamin D3 Softgel) 650 Mg-300 Capsule 1 EACH PO (Reported) Followup Plan Disposition: Home (pt is unfortunetly homeless) Follow-up plan Follow up with primary care physician in 1 -2 weeks to evaluate respiratory function, in addition to further consideration of diabeteis and optimal blood sugar control and hepatitis B and C infections. Scheduled for 03/07/2017 at 2: 30pm at [facility] Additionally, follow up X-ray of chest is recommended in 3 months to ensure complete resolution of finds on X-ray taking in hospital, which may be due to pneumonia infection, but may also represent other condition which would require further treatment. Medication changes including increased dosing of Clonidine to 3 times daily to help better control blood pressure Starting of Metformin, a medication to help control diabetes. You will likely need to consider further medications in addition to dietary changes in best control blood sugars, discuss this further with primary care physician once established. Discharge Diet: No restrictions Discharge Activity: No restrictions Follow-up with PCP in: 1 week Time spent 55 minutes copies to: [facility]; Katharina Wang MD, Benjamin P DO Mar 01, 2017 09:26
[2017-03-01] MEDS ORDERED: METF850T2 PO (11:53)
[2017-03-01] MEDS ORDERED: FERR-74 PO (11:53)
[2017-03-01] MEDS ORDERED: CLON0.1T14 PO (11:53)
--- NOTE | 2017-03-01 11:57 | PCM.DIMED ---
Discharge Instructions Date of Service Mar 01, 2017 Dates of Hospitalization Feb 22, 2017 at 15:35 Discharge Diagnosis Discharge Diagnosis Sepsis, secondary to Strep pneumoniae right lower lobe community acquired pneumonia, present on admission, improving. E. coli UTI, acute, POA, resolved/ treated. Hemoptysis, present on admission, resolved, Iron Deficiency Anemia, POA Diabetes mellitus, uncertain type, present on admission, a1c12.8 Chest pain, likely secondary to pneumonia, present on admission, improving Hepatitis C, present on admission Hepatitis B, present on admission Diet Discharge Diet: No restrictions Activity Discharge Activity: No restrictions Patient Instructions Follow-up plan Follow up with primary care physician in 1 -2 weeks to evaluate respiratory function, in addition to further consideration of diabeteis and optimal blood sugar control and hepatitis B and C infections. Additionally, follow up X-ray of chest is recommended in 3 months to ensure complete resolution of finds on X-ray taking in hospital, which may be due to pneumonia infection, but may also represent other condition which would require further treatment. Medication changes including increased dosing of Clonidine to 3 times daily to help better control blood pressure Starting of Metformin, a medication to help control diabetes. You will likely need to consider further medications in addition to dietary changes in best control blood sugars, discuss this further with primary care physician once established. Follow-up with PCP in: 1 week Sujit Helms DO Mar 01, 2017 11:57
--- NOTE | 2017-03-01 15:45 | NUR ---
Discharge Nursing Note: Patient was discharged to home at 1545. Patients IV was removed intact. Patient received a medical note from regarding her discharge condition and her housing situation. Patient spoke with dialysis social worker re her Post discharge plan and housing situation. All of patients discharge information was reviewed with her and her questions were answered to her satisfaction. Patients belongings were returned to her out of her locked closet. Patient had nothing in the [facility] safe or pharmacy. Patient was escorted to the [facility] lobby by nursing staff member and she walked to the bus stop to take the bus to the [facility] to eat dinner there and stay the night.
--- NOTE | 2017-03-01 16:33 | NUR ---
Social Work Note: Received referral from nursing and patient requesting SOFTWARE SECURITY ARCHITECT visit prior to pt.'s discharge. Met with pt. reiterated role. Pt. reports that she would like assistance in contacting her CM in [place] at [employer] in [place]. Obtained phone number and address and provided to patient for outpatient follow-up. Pt. reports that [employer] in [facility] attempting to find housing for patient. No additional needs identified at time of visit. P: D/C today. Resources provided per pt.'s request. IVETTE Menjivar
== END 2017-03-01 15:48 | disposition home or self-care (01) | DRG 194 ==
LOC: EDUNIT# 12:11 → EDBD 12:11 → SED 12:11 → OBSVTOIN 15:35 → OSC 15:35 → PCC 02-23 → MPC 02-24 16:09
PROVIDERS: ADMIT Internal Medicine Infectious Disease; ATTEND Family Medicine
DX: J13 Pneumonia due to Streptococcus pneumoniae (principal); R04.2 Hemoptysis; B19.10 Unspecified viral hepatitis B without hepatic coma; N39.0 Urinary tract infection, site not specified; E83.42 Hypomagnesemia; E11.9 Type 2 diabetes mellitus without complications; F17.200 Nicotine dependence, unspecified, uncomplicated; Y28.8XXA Contact with other sharp object, undetermined intent, initial encounter; B19.20 Unspecified viral hepatitis C without hepatic coma; M94.0 Chondrocostal junction syndrome [Tietze]; B96.20 Unspecified Escherichia coli [E. coli] as the cause of diseases classified elsewhere; D50.9 Iron deficiency anemia, unspecified; F15.10 Other stimulant abuse, uncomplicated; Z59.0 Homelessness; Y92.9 Unspecified place or not applicable